=== PATIENT | male | born 1970 | race Caucasian/White ===

== ENCOUNTER 2024-04-20 12:32 | Emergency (ER) | payer MEDICARE, MEDICAID, SELFPAY ==
[2024-04-20] VITALS (16 sets, daily range): BP systolic 98–133; BP diastolic 65–91; PULSE 66–82; RESP 10–24; TEMP 36.9; O2SAT 92–96; BMI 25.1
--- OUTSIDE RECORDS SUMMARY | 2024-04-20 12:35 | XMS_ITS | Clinical Summary ---
[facility] Organization [facility] Address [address] [place] [address] Care Team Providers Care Technical Rep Name Role Phone Juan Diego Herrera MD Primary Care Provider [phone] Source Comments You are receiving this document as you are listed as the primary care provider,follow-up provider, or the patient has been referred to you for consultation.This is in compliance with the Medicare and[facility] EHR Incentive Program,which states Providers who transition their patient to another setting of careor provider of care or refers their patient to another provider of care shouldprovide summary care record for each transition of care or referral. [facility] Allergies No known active allergies Medications sildenafil (VIAGRA) 50 MG tablet Take 1/2 to 1 tab as needed. Take 30min to 4 hours before sexual activity. Max 100mg/24hr 6 Active asenapine (SAPHRIS) 10 MG SUBL tablet 6 Active QUEtiapine (SEROQUEL) 300 MG tablet 6 Active naltrexone (REVIA) 50 MG tablet 6 Active Blood Pressure Monitoring (ADULT BLOOD PRESSURE CUFF LG) As directed. Blood Pressure cuff, use to check blood pressure 3-7 times weekly. 6 Active metoPROLOL succinate (TOPROL XL) 25 MG 24 hour release tablet Take 25 mg by mouth. 6 Active hydrOXYzine HCl (ATARAX) 10 MG tablet Take 10 mg by mouth. 5 Active gabapentin (NEURONTIN) 300 MG capsule Take 600 mg by mouth. 6 Active fluoxetine (PROZAC) 40 MG capsule Take 40 mg by mouth. 5 Active cyclobenzaprine (FLEXERIL) 10 MG tablet TAKE 1 TABLET BY MOUTH UP TO 2 TIMES DAILY NEEDED FOR MUSCLE SPASMS. Use least amount possible. 6 Active busPIRone (BUSPAR) 30 MG tablet 6 Active buPROPion (WELLBUTRINSR) 150 MG 12 hour release tablet 6 Active atomoxetine (STRATTERA) 40 MG capsule Take 40 mg by mouth. 5 Active lisinopril (ZESTRIL) 2.5 MG tablet Take 10 mg by mouth daily. Active zolpidem tartrate (AMBIEN CR) 12.5 MG controlled release tablet Take 12.5 mg by mouth. 7 Active INCRUSE ELLIPTA 62.5 MCG/INH inhaler 2 8 Active umeclidinium (INCRUSE ELLIPTA) 62.5 MCG/INH inhaler Inhale 1 Puff. 7 Active tiotropium (SPIRIVA) 18 MCG inhalation capsule Inhale 18 mcg. Activ e OLANZapine (ZYPREXA) 2.5 MG tablet Take 20 mg by mouth. Active OLANZapine (ZYPREXA) 10 MG tablet Take 10 mg by mouth. 7 Active OLANZapine (ZYPREXA) 20 MG tablet Take 20 mg by mouth. 7 Active naproxen (NAPROSYN) 500 MG tablet Take by mouth. 7 Active ketoconazole (NIZORAL) 2 % cream APPLY TO AFFECTED AREA(S) ONCE DAILY 6 Active ipratropium-alb uterol (DUONEB) 0.5-2.5 MG/3ML nebulizer solution 6 8 Active fluticasone (FLOVENT HFA) 220 mcg/actuation inhaler Inhale. 7 Active doxepin (SINEQUAN) 10 MG capsule Take 10 mg by mouth. 8 Active Docusate Sodium (DSS) 100 MG Take 100 mg by mouth. Active BANOPHEN 25 MG capsule 3 8 Active clotrimazole (LOTRIMIN) 1 % cream Apply topically. 7 Active Misc. Devices (QUAD CANE) Single Point Cane for home use. For 6 months. Diagnosis frequent falls and chronic back pain. 7 Active Suvorexant (BELSOMRA) 20 MG TABS 8 Active baclofen (LIORESAL) 10 MG tablet Take 5 mg by mouth. Active atorvastatin (LIPITOR) 10 MG tablet Take 40 mg by mouth. Active atorvastatin (LIPITOR) 40 MG tablet Take 40 mg by mouth. 8 Active aspirin, enteric-coated 81 MG enteric coated tablet Take 81 mg by mouth. 7 Active amoxicillin (AMOXIL) 500 MG capsule 8 Active ALBUterol sulfate HFA 108 (90 BASE) MCG/ACT inhaler Inhale 2 Puffs. 7 Active acetaminophen (TYLENOL) 500 MG tablet Take 1,000 mg by mouth. 5 Active ibuprofen (MOTRIN) 600 MG tablet Take 1 Tab by mouth every 6 hours as needed for Pain. 30 Tab 8 Active HYDROcodone-jaye taminophen (NORCO) 5-325 MG tablet Take 1 Tab by mouth every 6 hours as needed for Pain. 15 Tab 8 Active chlorhexidine gluconate (PERIDEX) 0.12 % solution Swish and spit 15 mL in mouth two times a day. 473 mL 8 Active Active Problems Problem Noted Date Diagnosed Date Hyperlipidemia 01/31/2016 Moderate depressed bipolar I disorder 01/31/2016 Overview (01/31/2016): Overview: Problem list name updated by automated process. Provider to review Traumatic brain injury 01/31/2016 Overview (01/31/2016): Overview: Went Through [facility] at 14 year old. Early 2015: [facility]. 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 Hypertension 07/15/2015 Overview (01/31/2016): Overview: Mar 2014 metoprolol XL was started for tachycardia and blood pressure. Abnormal liver enzymes 02/03/2015 Overview (01/31/2016): Overview: Dec 2014: elevated AST, ALT< and Alkaline phosphatase when drinking 1.75L vodka/day. Borderline diabetes mellitus 01/01/2015 Overview (01/31/2016): Overview: Mar 2014: fasting blood sugar 158. Dec 2014: fasting blood sugar 112, screening A1c 6.3. Bifascicular block 12/09/2014 Overview (01/31/2016): Overview: November 2014: Echocardiogram essentially normal. Attention deficit hyperactiv ity disorder (ADHD), combined type 12/02/2014 Overview (01/31/2016): Overview: Per [facility] note 11/2014, started on Strattera. Alcohol dependence 07/30/2012 Overview (01/31/2016): Overview: Oct 2014: At [facility] outpatient chem treatment for history of meth, alcohol. Anxiety 07/30/2012 Cannabis dependence 07/30/2012 Depression 07/30/2012 Overview (01/31/2016): Overview: Evaluating for mood d/o Nov 2012: [facility]: increase prozac to 40mg. Injury of head 07/30/2012 Overview (01/31/2016): Overview: Age 1 and 14 Methamphetamine addiction 07/30/2012 Tobacco use 06/25/2012 Back pain 06/18/2012 Overview (01/31/2016): Overview: Oct 2012: Chronic, On gabapentin three times daily for pain. physical therapy ordered. Sep 2014: 3 visits of physical therapy for back. Oct 2014: changing Cyclobenzaprine (Flexaril) to tizanidine. 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 Gender Identity Not on file Sexual Orientation Not on file Last Filed Vital Signs Vital Sign Reading Time Taken Comments Blood Pressure 110/64 10/10/2017 10:03 AM CDT Pulse 96 10/10/2017 10:03 AM CDT Temperature 36.7 C (98 F) 07/16/2017 4:54 PM CDT Respiratory Rate 18 07/16/2017 4:54 PM CDT Oxygen Saturation 95% 07/16/2017 4:54 PM CDT Inhaled Oxygen Concentration - - Weight 113.4 kg (250 lb) 07/16/2017 11:29 AM CDT Height 175.3 cm (5' 9) 07/16/2017 11:29 AM CDT Body Mass Index 36.92 07/16/2017 11:29 AM CDT Plan of Treatment Health Maintenance Due Date Last Done Comments Colon Cancer Screening Plan Due 1968 Hep C Screening (Preventive Services) 1968 PSA Screening Discussion 1968 HIV Screening (Preventive Services) 1984 Adult Preventive Visit 1986 HepB (1) 09/27/1987 Cholesterol 09/27/2003 Zoster/Shingles (1 of 2) 2018 Pneumococcal 50+ Yrs (2 of 2 - PCV) 01/19/2021 01/20/2020 COVID-19 Vaccine (2 - 2023- season) 2023 05/11/2020 Influenza (#1) 2023 11/21/2018, 10/28, 10/23/2017, Additional history exists DTaP/Tdap/Td (2 - Tdap) 07/13/2027 07/12/2017 Pneumococcal Aged Out 01/20/2020 No longer eligi ble based on patient's age to complete this topic HepA Aged Out No longer eligi ble based on patient's age to complete this topic Hib Aged Out No longer eligi ble based on patient's age to complete this topic IPV (Polio) Aged Out No longer eligi ble based on patient's age to complete this topic MCV4 Aged Out No longer eligi ble based on patient's age to complete this topic Meningococcal B Aged Out No longer el igible based on patient's age to complete this topic Insurance [facility] Advance Directives * Full Code (Latest Code Status on File) Date Activated Date Inactivated Comments 07/16/2017 11:21 AM 07/16/2017 7:06 PM * Full Code Date Activated Date Inactivated Comments 01/31/2016 9:29 PM 02/01/2016 4:32 PM Care Teams Technical Rep Relationship Specialty Start Date End Date Juan Diego Herrera [place] [address] PCP - General Urgent Care 07/16/17
--- OUTSIDE RECORDS SUMMARY | 2024-04-20 12:35 | XMS_ITS | Clinical Summary ---
Author Organization [facility] Address [address] [place] [address] Care Team Providers Care Group Fitness Manager Name Role Phone Wesley Groves MD Primary Care Provider [phone] Allergies Active Allergy Reactions Criticality Noted Date Comments Lisinopril 07/31/2022 DIZZINESS No Known Drug Allergy 04/06/2004 Medications OLANZapine (ZYPREXA) 20 MG tablet Take 20 mg by mouth At Bedtime At 2200 Active FLUoxetine (PROZAC) 20 MG capsule Take 60 mg by mouth every morning At 0800 (3 x 20mg) Active aspirin 81 MG EC tablet Take 81 mg by mouth daily AT 1400 Active gabapentin (NEURONTIN) 300 MG capsule Take 600 mg by mouth 3 times daily At 0800, 1400, 2200 (2 x 300mg) Active busPIRone (BUSPAR) 10 MG tablet Take 15 mg by mouth 2 times daily At 0800 and 1400 Active baclofen (LIORESAL) 10 MG tablet Take 5 mg by mouth 3 times daily At 0800, 1400, 2200 (1/2 x 10mg) Active rosuvastatin (CRESTOR) 20 MG tablet Take 20 mg by mouth At Bedtime At 2200 Active Suvorexant (BELSOMRA) 20 MG tablet Take 20 mg by mouth At Bedtime Active metFORMIN (GLUCOPHAGE-XR) 500 MG 24 hr tablet Take 1,000 mg by mouth daily (with dinner) At 1400 Active QUEtiapine (SEROQUEL) 300 MG tablet Take 900 mg by mouth At Bedtime At 2200 (3 x 300mg) Active linagliptin (TRADJENTA) 5 MG TABS tablet Take 5 mg by mouth daily At 1400 Active glimepiride (AMARYL) 2 MG tablet Take 2 mg by mouth daily with food At 1400 Active buPROPion (WELLBUTRIN XL) 150 MG 24 hr tablet Take 150 mg by mouth every morning Active diphenhydrAMINE (BENADRYL) 25 MG capsule Take 25-50 mg by mouth At Bedtime Active naproxen (EC-NAPROSYN) 500 MG EC tablet Take 500 mg by mouth every 12 hours as needed Active ipratropium - albuterol 0.5 mg/2.5 mg/3 mL (DUONEB) 0.5-2.5 (3) MG/3ML neb solution Take 1 vial by nebulization every 6 hours as needed for shortness of breath / dyspnea or wheezing Active Fluticasone-Ume clidin-Vilanter ol (TRELEGY ELLIPTA) 100-62.5-25 MCG/INH oral inhaler Inhale 1 puff into the lungs daily Active docusate sodium (COLACE) 100 MG capsule Take 100 mg by mouth daily as needed for constipation Active celecoxib (CELEBREX) 200 MG capsule Take 400 mg by mouth 2 times daily 2 Active DULoxetine (CYMBALTA) 30 MG capsule Take 30 mg by mouth daily 2 Active famotidine (PEPCID) 20 MG tablet Take 20 mg by mouth daily 2 Active traMADol (ULTRAM) 50 MG tablet Take 50 mg by mouth as needed 2 Active metoprolol succinate ER (TOPROL XL) 50 MG 24 hr tablet Take 50 mg by mouth daily 2 Active acetaminophen (TYLENOL) 500 MG tablet Take 500-1,000 mg by mouth every 6 hours as needed for mild pain Active hydrOXYzine (ATARAX) 25 MG tablet Take 25-50 mg by mouth nightly as needed for other (SLEEP) Active nicotine (NICOTROL) 10 MG/ML SOLN inhalation solution [place] 1 spray in nostril every hour as needed for smoking cessation Active ondansetron (ZOFRAN ODT) 8 MG ODT tab Take 8 mg by mouth every 8 hours as needed for nausea Active albuterol (PROAIR HFA/PROVENTIL HFA/VENTOLIN HFA) 108 (90 Base) MCG/ACT inhaler Inhale 2 puffs into the lungs every 4 hours as needed for shortness of breath, wheezing or cough Active oxyCODONE (ROXICODONE) 5 MG tabletIndicatio ns:History of anal cancer Take 1 tablet (5 mg) by mouth every 6 hours as needed for moderate to severe pain 15 tablet 3 Active Active Problems Problem Noted Date Diagnosed Date Right leg weakness 03/20/2021 Acute respiratory failure with hypoxia 2 Elevated troponin I level 03/20/2021 COPD exacerbation 01/01/2019 Dyspnea 12/31/2018 Acute renal failure (ARF) 02/19/2017 COPD (chronic obstructive pulmonary disease) 11/2016 Tendinitis of right wrist 01/05/2011 HYPERLIPIDEMIA LDL GOAL <130 12/26/2009 Carpal tunnel syndrome 08/13/2004 Insomnia 07/05/2004 Overview (11/26/2014): Problem list name updated by automated process. Provider to review Anxiety state 07/05/2004 Overview (11/26/2014): Problem list name updated by automated process. Provider to review Tension headache 07/05/2004 Preop examination 04/26/2004 Overview (11/26/2014): Problem list name updated by automated process. Provider to review Other and unspecified disc disorder of cervical region 04/26/2004 Hyperlipidemia Overview (11/26/2014): Problem list name updated by automated process. Provider to review Moderate depressed bipolar I disorder Overview (11/27/2014): Problem list name updated by automated process. Provider to review Immunizations Name Administration Dates Next Due Influenza Vaccine >6 months,quad, PF ,11/23/2017,10/23/2017, 017 Family History Medical History Relation Comments Cancer - colorectal Maternal Uncle 2 of 4 uncle s Relation Status Comments Brother Alive 1 Father Alive Maternal Uncle Mother Alive Social History Tobacco Use Types Packs/Day Years Used Date Smoking Tobacco: Every Day Cigarettes 0.5 34 Smokeless Tobacco: Former Alcohol Use Standard Drinks/Week Comments No 0 (1 standard drink = 0.6 oz pur e alcohol) sober since 2005 Adolescent Education Answer Date Record ed Getting School Help Needed Not on file 12/12 Sex and Gender Information Value Date Recorded Sex Assigned at Not on file 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 Gender Identity Not on file Sexual Orientation Not on file Last Filed Vital Signs Vital Sign Reading Time Taken Comments Blood Pressure 132/94 02/22/2023 2:02 PM BLOCK PLACER Pulse 67 02/22/2023 12:08 PM BLOCK PLACER Temperature 36.3 C (97.3 F) 02/22/2023 11:26 AM BLOCK PLACER Respiratory Rate 18 02/22/2023 12:08 PM BLOCK PLACER Oxygen Saturation 95% 02/22/2023 2:02 PM BLOCK PLACER Inhaled Oxygen Concentration - - Weight 92.1 kg (203 lb) 08/01/2022 1:48 PM CDT Height 175.3 cm (5' 9) 08/01/2022 1:48 PM CDT Body Mass Index 29.98 08/01/2022 1:48 PM CDT Plan of Treatment Health Maintenance Due Date Last Done Comments ADVANCE CARE PLANNING 1968 ANNUAL REVIEW OF HM ORDERS 1968 COPD ACTION PLAN 1968 CT COLONOGRAPHY 1968 FIT 1968 FLEX SIG 1968 SPIROMETRY 1968 sDNA (Cologuard) 1968 HEPATITIS B IMMUNIZATION (1 of 3 - 19+ 3-dose series) 09/27/1987 LIPID 06/06/2006 06/06/2005 MEDICARE ANNUAL WELLNESS VISIT 07/28/2009 07/28/2008 ZOSTER IMMUNIZATION (1 of 2) 2018 LUNG CANCER SCREENING 03/20/2022 03/20/2021 COVID-19 Vaccine ( season) 2023 02/07/2022, 10/04/2021, 01/26/2021, Additional history exists INFLUENZA VACCINE (#1) 2023 , 01/24/2022, 01/14/2021, Additional history exists PHQ-2 (once per calendar year) 2024 GLUCOSE 08/16/2024 08/16/2021, 07/28, 03/23/2021, Additional history exists DTAP/TDAP/TD IMMUNIZATION (2 - Td or Tdap) 07/13/2027 07/12/2017 COLONOSCOPY 04/21/2029 04/21/2019, 09/28/2008 COLORECTAL CANCER SCREENING 04/21/2029 HEPATITIS C SCREENING Completed 03/11/2020, 006 HIV SCREENING Completed 03/11/2020, 06/06/2005 Pneumococcal Vaccine: 50+ Years Completed 03/20/2023, 01/20/2020 HPV IMMUNIZATION Aged Out No longer e ligible based on patient's age to complete this topic MENINGITIS IMMUNIZATION Aged Out No l onger eligible based on patient's age to complete this topic Procedures Procedure Name Priority Date/Time Associated Diagnosis Comments GLUCOSE BY METER Routine 08/16/2021 1:[address] CHEST PULMONARY EMBOLISM W CONTRAST STAT 03/20/2021 10:22 AM BLOCK PLACER ZZHC COLONOSCOPY THRU STOMA, DIAGNOSTIC Routine 09/28/2008 HCL HIV 1 & 2 ANTIBODY Routine 06/06/2005 11:23 AM CDT Schizophrenia Nec-Unspec Bipolar - Most Recently Manic Nos HCL HEPATITIS C VIRUS ANTIBODY Routine 06/06/2005 11:23 AM CDT Schizophrenia Nec-Unspec Bipolar - Most Recently Manic Nos CL AFF A.M.A. LIPID PANEL Routine 06/06/2005 11:23 AM CDT Schizophrenia Nec-Unspec Bipolar - Most Recently Manic Nos from Last 3 Months or Most Recently Relevant to Health Maintenance Results * (ABNORMAL) Glucose by meter (08/16/2021 1:08 PM CDT) GLUCOSE BY METER POCT 143(H) 70 - 99 mg/dL 08/16/2021 1:15 PM CDT [facility] LAB[facility]AT[facility] POC Blood, Capillary BLOOD SPECIMEN / Unknown 08/16/2021 1:08 PM CDT 08/16/2021 1:15 PM CDT us Leigh Lynne MD LAB - BEAKER POCT Final Re sult [facility]ORAT[facility] POC [facility] [address] [facility] (1st floor, no room number) [place] [address], [facility] [phone] * CT Chest Pulmonary Embolism w Contrast (03/20/2021 10:22 AM BLOCK PLACER) Anatomical Region Laterality Modality Chest, SUBRAD CT BODY, UMP CT CHEST Computed Tomography 03/20/2021 10:1 0 AM BLOCK PLACER Impressions 03/20/2021 10:50 AM BLOCK PLACER IMPRESSION: 1. No pulmonary embolism demonstrated. 2. Minimal peripheral atelectasis and/or fibrosis. 3. Minimally prominent right hilar lymph node of uncertain etiology and significance, stable since comparison. Narrative 03/20/2021 10:50 AM BLOCK PLACER EXAM: CT CHEST PULMONARY EMBOLISM WITH CONTRAST LOCATION: [facility] DATE/TIME: 03/20/2021, 10:10 AM INDICATION: Hypoxia. PE suspected, low/intermediate probability, positive D- dimer. COMPARISON: 08/26/2020. TECHNIQUE: CT chest pulmonary angiogram during arterial phase injection of IV contrast. Multiplanar reformats and MIP reconstructions were performed. Dose reduction techniques were used. CONTRAST: 71 mL Isovue-370. FINDINGS: ANGIOGRAM CHEST: Pulmonary arteries are normal caliber and negative for pulmonary emboli. Thoracic aorta is negative for dissection. No CT evidence of right heart strain. LUNGS AND PLEURA: Minimal peripheral atelectasis and/or fibrosis. No effusions. MEDIASTINUM/AXILLAE: Minimally prominent right hilar lymph node, of uncertain etiology or significance. No aneurysm. CORONARY ARTERY CALCIFICATION: None. UPPER ABDOMEN: No acute findings. MUSCULOSKELETAL: No frankly destructive bony lesions. Procedure Note Azam Zamudio MD - 03/20/2021 EXAM: CT CHEST PULMONARY EMBOLISM WITH CONTRAST LOCATION: [facility] DATE/TIME: 03/20/2021, 10:10 AM INDICATION: Hypoxia. PE suspected, low/intermediate probability, positiveD- dimer. COMPARISON: 08/26/2020. TECHNIQUE: CT chest pulmonary angiogram during arterial phase injection ofIV contrast. Multiplanar reformats and MIP reconstructions were performed.Dose reduction techniques were used. CONTRAST: 71 mL Isovue-370. FINDINGS: ANGIOGRAM CHEST: Pulmonary arteries are normal caliber and negative forpulmonary emboli. Thoracic aorta is negative for dissection. No CTevidence of right heart strain. LUNGS AND PLEURA: Minimal peripheral atelectasis and/or fibrosis. Noeffusions. MEDIASTINUM/AXILLAE: Minimally prominent right hilar lymph node, ofuncertain etiology or significance. No aneurysm. CORONARY ARTERY CALCIFICATION: None. UPPER ABDOMEN: No acute findings. MUSCULOSKELETAL: No frankly destructive bony lesions. IMPRESSION: 1. No pulmonary embolism demonstrated. 2. Minimal peripheral atelectasis and/or fibrosis. 3. Minimally prominent right hilar lymph node of uncertain etiology andsignificance, stable since comparison. Ethan Ferrer MD IMG CT ORDERABLES Final Resu lt * COLONOSCOPY (09/28/2008) Marco Land MD PROCEDURES Final Result * HEPATITIS C AB (06/06/2005 11:23 AM CDT) Hepatitis C Antibody Negative NEG [facility] 06/06/2005 11:2 3 AM CDT 06/06/2005 11:25 AM CDT Jose Sheehan MD LABORATORY Final Resu lt [facility] [address] [place] [address] * HIV-1/HIV-2, SCREEN (06/06/2005 11:23 AM CDT) HIV 1&2 Antibody Negative NEG [facility] 06/06/2005 11:2 3 AM CDT 06/06/2005 11:25 AM CDT Jose Sheehan MD LABORATORY Final Resu lt [facility] [address] [place] [address] * (ABNORMAL) A.M.A. LIPID PANEL (06/06/2005 11:23 AM CDT) Cholesterol 216(H) 0 - 200 mg/dL [facility] Comment: LDL Cholesterol is the primary guide to therapy: LDL-cholesterol goal in high risk patients is <100 mg/dL and in very high risk patients is <70 mg/dL. The NCEP recommends further evaluation of: patients with cholesterol <200 mg/dL if additional risk factors are present, cholesterol >240 mg/dL, triglycerides >150 mg/dL, or HDL <40 mg/dL. Triglycerides 149 0 - 150 mg/dL [facility] HDL Cholesterol 53 40 - 110 mg/dL [facility] LDL Cholesterol Calculated 133(H) 0 - 129 mg/dL [facility] Comment: LDL Cholesterol is the primary guide to therapy: LDL-cholesterol goal in high risk patients is <100 mg/dL and in very high risk patients is <70 mg/dL. VLDL-Cholesterol 30 0 - 30 mg/dL [facility] Cholesterol/HDL Ratio 4.1 0.0 - 5.0 [facility] 06/06/2005 11:2 3 AM CDT 06/06/2005 11:25 AM CDT Jose Sheehan MD LABORATORY Final Resu lt [facility] [address] [place] [address] from Last 3 Months or Most Recently Relevant to Health Maintenance Insurance [employer] MEDICARE [facility] MEDICARE Advance Directives For more information, please contact: [phone] * Full Code (Latest Code Status on File) Date Activated Date Inactivated Comments 03/20/2021 1:18 PM 03/23/2021 4:11 PM All basic an d advanced life-sustaining interventions are performed as appropriate Question Answer Comments Code status determined by: Discussion with sale nt/ legal decision maker * Full Code Date Activated Date Inactivated Comments 12/31/2018 10:50 AM 01/01/2019 3:13 PM Question Answer Comments Code status determined by: Discussion with sale nt/legal decision maker * Full Code Date Activated Date Inactivated Comments 02/21/2017 1:26 PM 12/31/2018 7:18 AM * Full Code Date Activated Date Inactivated Comments 02/19/2017 2:33 PM 02/21/2017 1:26 PM * Full Code Date Activated Date Inactivated Comments 01/07/2017 1:58 PM 02/19/2017 2:33 PM Care Teams Group Fitness Manager Relationship Specialty [place] [address] [place] [address] PCP - General 02/22/23
--- OUTSIDE RECORDS SUMMARY | 2024-04-20 12:35 | XMS_ITS | Encounter Summary ---
Author Organization [facility] Address [address] [place] [address] Care Team Providers Care Military Logistics Specialist Name Role Phone Juan Diego Herrera MD Primary Care Provider [phone] Encounter Details Date Type Department Care Team (Late st Contact Info) Description 07/16/2017 Consent for Procedure/Treatme nt [facility] INFORMED CONSENT RECORD Social History Tobacco Use Types Packs/Day Years Used Date Smoking Tobacco: Every Day Cigarettes Smokeless Tobacco: Never Alcohol Use Standard Drinks/Week Comments No 0 (1 standard drink = 0.6 oz pur e alcohol) Sex and Gender Information Value Date Recorded Sex Assigned at Not on file 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
--- OUTSIDE RECORDS SUMMARY | 2024-04-20 12:35 | XMS_ITS | Clinical Summary ---
Author Organization [facility] Address [address] [place] [id number] Care Team Providers Care Storage Facility Housekeeper Name Role Phone Ruddy Astudillojero TORRES Unavailable [phone] Zack Marin MBRICHARD Unavailable + Ani Handley DPM Unavailable [phone] Leigh Lynne MD Unavailable [phone] Nader Sun Unavailable Yung Roque MD Unavailable [phone] Wesley Groves MD Primary Care Provider [phone] America Ambrocio MD Unavailable [phone] Allergies Active Allergy Reactions Criticality Noted Date Comments Lisinopril Dizziness 02/07/2018 DIZZINESS Medications acetaminophen (TYLENOL EXTRA STRGTH) 500 mg tabletIndications: Chronic low back pain Take 2 tablets by mouth every 6 hours if needed for Pain. Max acetaminophen dose: 4000mg in 24 hrs. 180 tablet 0 06/26/19 15 Active miscellaneous medical supply (BLOOD PRESSURE CUFF) miscIndications:El evated blood pressure As directed. Blood Pressure cuff, use to check blood pressure 3-7 times weekly. 1 Units 0 06/21/19 16 Active FLUoxetine (PROZAC) 20 mg capsule TAKE 3 CAPSULES (60MG) BY MOUTH DAILY 3 02/23/20 16 Active ketoconazole 2% topical (NIZORAL) cream APPLY TO AFFECTED AREA(S) ONCE DAILY 0 01/28/20 16 Active CPAPIndications:OS A (obstructive sleep apnea) new CPAP machine for home use at pressure: 9 cms, Heated humidifier x 1, Humidifier chamber x 1, nasal mask with cushion x 1, Heated tubing x 1, Headgear x 1, Filters: Disposable x 1pk & Reusable x 1pk, Length of Need: 99 months, Frequency of use: Daily 12 04/24/19 17 Active NebulizerIndicatio ns:COPD with chronic bronchitis (HC) Disposable neb kit x4, reuseable neb kit x1, 1 mask, 1 filter. Frequency of use: daily prn; Medication: Duo neb. Length of need: 99 months 1 Device 01/18/20 17 Active vitamins a & d (Skin Protectant A and D) ointmentIndication s:Skin abnormality Apply topically to affected area(s) once daily if needed. 56 g 1 08/17/19 21 Active docusate (COLACE) 100 mg capsule Take 1 Capsule (100 mg) by mouth 2 times daily if needed for Constipation. 0 09/03/19 21 Active nicotine (NICOTROL) 10 mg inhalerIndications :Tobacco use disorder Inhale 10 mg by mouth every hour while awake as needed for Nicotine Craving. 168 Each 2 10/06/19 22 Active tamsulosin (FLOMAX) 0.4 mg capsule Take 0.4 mg by mouth once daily after a meal. Active Blood-Glucose Meter (Accu-Chek Guide Glucose Meter)Indications: Type 2 diabetes mellitus without complication, without long-term current use of insulin (HC) Dispense glucose meter, test strips and lancets covered by the patient insurance. Test 1 times per day. 1 Each 01/27/20 23 Active albuterol-ipratrop ium (DUONEB) (2.5-0.5 mg) in 3 mL NEBULIZATION solution Inhale 3 mL via a nebulizer every 6 hours if needed for Wheezing or Shortness of Breath 2nd choice. 03/19/19 24 Active cyclobenzaprine (FLEXERIL) 10 mg tablet Take 1 Tablet (10 mg) by mouth 2 times daily if needed for Muscle Spasm. 03/19/19 24 Active hydrOXYzine HCL (ATARAX) 25 mg tabletIndications: Anxiety Take 1 Tablet (25 mg) by mouth every 6 hours if needed for Anxiety. 25 Tablet 5 03/20/19 24 Active lancets (Accu-Chek Softclix Lancets)Indication s:Type 2 diabetes mellitus without complication, without long-term current use of insulin (HC) TEST 1 TIME DAILY 100 Each 3 04/12/19 24 Active QUEtiapine (SEROQUEL) 100 mg tablet 1 tablet in the am and 2 tablets at bedtime 05/16/19 24 Active hydrOXYzine HCL (ATARAX) 25 mg tablet Take 1-2 Capsules at bedtime as needed for sleep 05/22/19 24 Active metFORMIN (GLUCOPHAGE XR) 500 mg Extended-Release tabletIndications: Type 2 diabetes mellitus without complication, without long-term current use of insulin (HC) Take 2 Tablets (1,000 mg) by mouth once daily with evening meal. For diabetes. 180 Tablet 3 06/11/19 24 Active OLANzapine (ZYPREXA) 20 mg tablet Take 20 mg by mouth at bedtime. 05/30/19 24 Active OLANzapine (ZyPREXA) 10 mg tabletIndications: Chronic midline low back pain without sciatica Take half tablet (5mg) am and noon. 06/13/19 24 Active blood sugar diagnostic (Accu-Chek Guide test strips) stripIndications:T ype 2 diabetes mellitus without complication, without long-term current use of insulin (HC) TEST 1 TIME DAILY 100 Each 3 07/21/19 24 Active buPROPion (WELLBUTRIN XL) 150 mg Extended-Release tablet Take 150 mg by mouth once daily. 08/15/19 24 Active ibuprofen (ADVIL; MOTRIN) 600 mg tablet Take 1 Tablet (600 mg) by mouth every 8 hours if needed for Pain. Maximum of 3200 mg in 24 hours. 09/17/19 24 Active naproxen (NAPROSYN) 500 mg tablet Take 1 Tablet (500 mg) by mouth two times daily. 09/17/19 24 Active fluticasone ijd-mkpolinngsri-k ilanterol (Trelegy Ellipta) 100-62.5-25 mcg inhalerIndications :COPD with chronic bronchitis (HC) Inhale 1 Puff by mouth once daily. 60 Each 11 10/16/19 24 Active imiquimod (ALDARA) 5 % creamIndications:S kin lesion Apply 1 packet topically in the evening on . 24 Packet 2 12/10/19 24 Active albuterol HFA (Ventolin HFA) 90 mcg/actuation inhalerIndications :COPD with chronic bronchitis (HC) Inhale 2 Puffs by mouth every 4 hours if needed for Shortness Of Breath. 36 g 5 12/19/19 24 Active glimepiride (AMARYL) 2 mg tabletIndications: Type 2 diabetes mellitus without complication, without long-term current use of insulin (HC) Take 1 Tablet (2 mg) by mouth once daily with a meal. For diabetes. 12/19/19 24 Active acetaminophen-code ine (TYLENOL #3) 300-30 mg per tabletIndications: Acute right-sided low back pain without sciatica Take 1 Tablet by mouth every 4 hours if needed for Pain. Max acetaminophen dose: 4000mg in 24 hrs. 20 Tablet 01/01/20 24 Active rosuvastatin (CRESTOR) 20 mg tabletIndications: Hypercholesterolem ia TAKE 1 TAB BY MOUTH AT BEDTIME FOR CHOLESTEROL 90 Tablet 3 01/06/20 24 Active busPIRone (BUSPAR) 15 mg tablet Take 1.5 Tablets (22.5 mg) by mouth three times daily. 01/14/20 24 Active DULoxetine (CYMBALTA) 30 mg Delayed-release capsuleIndications :Major depressive disorder, single episode, severe without psychotic features (HC),Anxiety,Depre ssion, unspecified depression type TAKE 1 CAPSULE BY MOUTH EVERY DAY 90 Capsule 3 01/29/20 24 Active famotidine (PEPCID) 20 mg tabletIndications: Pain in right leg TAKE 1 TABLET BY MOUTH TWICE A DAY 180 Tablet 2 02/16/20 24 Active aspirin (ECOTRIN) 81 mg enteric coated tabletIndications: Chest pain, unspecified type Take 1 Tablet (81 mg) by mouth once daily with a meal. 90 Tablet 3 02/14/20 24 Active metoprolol succinate (TOPROL XL) 50 mg sustained-release tabletIndications: Anxiety Take 0.5 Tablets (25 mg) by mouth once daily. 02/21/20 24 Active linaGLIPtin (Tradjenta) 5 mg tabIndications:Typ e 2 diabetes mellitus without complication, without long-term current use of insulin (HC) Take 1 Tablet (5 mg) by mouth once daily. 30 Tablet 5 02/22/20 24 Active baclofen 10 mg tabletIndications: Chronic midline low back pain without sciatica,Chronic bilateral low back pain without sciatica,Degenerat ion of intervertebral disc of lumbar region with discogenic back pain and lower extremity pain TAKE 1/2 TABLET BY MOUTH UP TO MAX OF 3 TIMES DAILY 135 Tablet 5 02/27/19 25 Active gabapentin (NEURONTIN) 300 mg capsuleIndications :Chronic midline low back pain without sciatica,Chronic bilateral low back pain without sciatica,Degenerat ion of intervertebral disc of lumbar region with discogenic back pain and lower extremity pain Take 3 Capsules (900 mg) by mouth three times daily. 270 Capsule 3 02/27/19 25 Active polyethylene glycol-electrolyte (GOLYTELY) 236-22.74-6.74 -5.86 gram suspensionIndicati ons:Encounter for screening colonoscopy Drink 2 liters the day before the procedure and 2 liters 6 hours prior to procedure. 4000 mL 06/14/19 25 Active Active Problems Problem Noted Date Diagnosed Date Bipolar disorder, current ep isode depressed, mild or moderate severity, unspecified 03/20/2023 Chronic obstructive pulmonar y disease, unspecified COPD type 03/20/2023 Impairment of balance 02/09/2023 Major depressive disorder, s arabella episode, severe without psychotic features 04/06/2021 Neuropathy of right peroneal nerve 04/01/2021 Overview (04/01/2021): Mar 2021: Anal cancer 09/02/2020 Overview (09/02/2020): Diagnosis August 2020, Surgery planned. Choroidal nevus, right eye 06/07/2020 Adenomatous colon polyp 04/22/2019 Overview (04/22/2019): Colonoscopy 03/2019 polyp, repeat in 5 years Abnormal cardiovascular stress test 02/06/2018 Type 2 diabetes mellitus wit hout complication, without long-term current use of insulin 07/03/2017 Overview (07/11/2019): Diagnosis made June 2017: Hemoglobin A1c 7.8 and Fasting 158. Started metformin. May 2019: GI symptoms/weight loss/ decreased appetite improved with stopping metformin. Changed metformin to invokana. May 2019: adding Glimepiride due to high blood sugars. June 2019: Blood sugars high, so adding back Metformin XR. 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 COPD with chronic bronchitis 04/05/2016 Overview (04/01/2021): New diagnosis 2015. On spiriva, adding flovent Mar 2016. Dec 2016: admitted with CAP and respiratory failure. Added duoneb prn. Spiriva Changed to Incruse Ellipta due to insurance reasons only. July 2018: Changing back to Spiriva due to insurance. January 2019: STopping spiriva and duoneb, Starting Albuterol nebulizer and Breo Ellipta with referral to pulmonary. Severely abnormal Spirometry. Mar 2021: Hospitalization for COPD exacerbation and Acute hypoxic respiratory failure, Erectile dysfunction 08/26/2015 Overview (08/28/2015): New diagnosis July 2015: Cialis started. Primary hypertension 07/15/2015 Overview (01/24/2018): Mar 2014 metoprolol XL was started for tachycardia and blood pressure. May 2016: Cardiology increased to 50mg. December 2017: decreased lisinopril to 5mg due to light headed and Orthostatic hypotension symptoms. December 2017: Continued low blood pressure with fall suspected to be related to hypotension. Stopping lisinopril. Elevated liver enzymes 02/03/2015 Overview (01/22/2020): Dec 2014: elevated AST, ALT< and Alkaline phosphatase when drinking 1.75L vodka/day. Dec 2019: Alkaline phosphatase 198, GGT 104. Gastrointestinal consult ordered. Bifascicular block 12/09/2014 Overview (12/09/2014): November 2014: Echocardiogram essentially normal. Attention deficit hyperactiv ity disorder (ADHD), combined type 12/02/2014 Overview (12/02/2014): Per [facility] note 11/2014, started on Strattera. Long-term use of high-risk medication 06/05/2014 Depression 07/30/2012 Overview (06/17/2019): Evaluating for mood d/o Nov 2012: [facility]: increase prozac to 40mg. January 2019: Marium Astudillo stopped buspirone. Head injuries 07/30/2012 Overview (07/30/2012): Age 1 and 14 Anxiety 07/30/2012 Tobacco use disorder 06/25/2012 Overview (10/05/2021): Sep 2021: trying Nicoderm patch to help quit. Not covered, so changed to Nicotine inhaler. Back pain 06/18/2012 Overview (09/13/2016): Oct 2012: Chronic, On gabapentin three times daily for pain. physical therapy ordered. Sep 2014: 3 visits of physical therapy for back. Oct 2014: changing Cyclobenzaprine (Flexaril) to tizanidine. MRI Lumbar Spine August 2016: shows minor disc bulging without stenosis. Doing physical therapy Summer 2016. PHARYNGITIS, ACUTE 09/22/1999 TBI (traumatic brain injury) Overview (06/25/2014): Went Through [facility] at 14 year old. Early 2014: [facility]. JODIE (obstructive sleep apnea) Overview (04/19/2016): Mar 2016: Sleep study at [facility], AHI 72 Resolved Problems Problem Noted Date Diagnosed Date Resolved Date Alcohol withdrawal seizure w ithout complication 04/05/2016 10/19/2020 Overview (04/05/2016): January 2016. Methamphetamine dependence 07/30/2012 0 04/06/2021 Cannabis dependence 07/30/2012 07/18/19 Alcohol dependence 07/30/2012 3 Overview (11/20/2014): Oct 2014: At [facility] outpatient chem treatment for history of meth, alcohol. Alcoholism in remission 07/09/201205/2012 Marihuana abuse 07/09/2012 07/30/2012 Bipolar disorder (manic depression) 06/18/2012 07/30/2012 Encounters Date Type Department Care Team Description 04/20/2024 11:20 AM SQL SERVER CONSULTANT Office Visit [facility] [address] [place] [phone] Leigh France PA Dizzy; Falls 04/20/2024 Travel 03/24/2024 [facility]phone [facility] [address] [place] [address] Hitesh Ryder MD Screening 03/20/2024 Orders Only [facility] [address] [place] [address] Hitesh Ryder MD <No scans attached> 03/07/2024 Telephone [facility] [address] [place] [address] Wesley Groves MD Form (HHC & POC) 03/03/2024 Telephone [facility] [address] [place] [address] Nader Sun PA Prior Authorization (XR INJ EPIDURAL INTERLAMINAR LUMBAR- PA DENIED- APPEAL NEEDED/) 02/29/2024 3:15 PM SQL SERVER CONSULTANT Orders Only [facility] [address] [place] [address] Lab, [facility] 02/28/2024 8:45 AM SQL SERVER CONSULTANT Procedure Only [facility] [address] [place] [address] America Ambrocio MD Procedure (lumbar interlaminar with no sed... 02/28/2024 8:10 AM SQL SERVER CONSULTANT - 02/28/2024 11:59 PM SQL SERVER CONSULTANT Hospital Encounter [facility] [address] [place] [address] America Ambrocio MD 02/28/2024 Travel 02/22/2024 8:45 AM SQL SERVER CONSULTANT Office Visit [facility] [address] [place] [address] Wesley Groves MD Preoperative Exam (DOS 02/28/24 steroid injection at the pain clinic) 02/22/2024 Travel 02/21/2024 Telephone [facility] [address] [place] [address] Wesley Groves MD Form (Physician's order) 02/18/2024 Telephone [facility] [address] [place] [address] America Ambrocio MD Prior Authorization (XR INJ EPIDURAL INTERLAMINAR LUMBAR (fyi only)/ ) 02/18/2024 Telephone [facility] [address] [facility] [address] [place] [address] Nader Sun PA Prior Authorization (XR INJ EPIDURAL INTERLAMINAR LUMBAR (ADD'L INFO REQUESTED)) 02/15/2024 Orders Only [facility] [address] [place] [address] Wesley Groves MD <No scans attached> 02/15/2024 Nurse Triage [facility] [address] [place] [address] Wesley Groves MD Low Blood Pressure 02/13/2024 Refill [facility] [address] [place] [address] Wesley Groves MD Refill Request (Famotidine) 02/11/2024 Refill [facility] [address] [place] [address] Wesley Groves MD Refill Request (Aspirin) 02/08/2024 10:30 AM SQL SERVER CONSULTANT Office Visit [facility] [address] [place] [address] Nader Sun PA Follow Up 02/08/2024 Travel 02/02/2024 Refill [facility] [address] [place] [address] Wesley Groves MD Refill Request (Metoprolol Succinate) 01/27/2024 Refill [facility] [address] [place] [address] Wesley Groves MD Refill Request (Duloxetine) from Last 3 Months Immunizations Name Administration Dates Next Due COVID-19 vaccine (Moderna 100mcg/0.5mL) PF, MDV 01/26/2021,06/08/2020,05/11/2020 COVID-19 vaccine (Moderna 50mcg/0.5mL) 12YO+ BIVALENT PF, MDV 02/07/2022 COVID-19 vaccine (Moderna Bora sofia 50mcg/0.25mL) PF, MDV 10/04/2021 INFLUENZA, IIV3 PF (AGE >= 6 MO) 12/19/2023 Influenza, IIV4 02/09/2023,,01/14/2021,2018,11/23/2017,10/23/2017,01/17/2017,0 04/05/2016 Pneumococcal Conj 20-valent (Prevnar 20) 03/20/2023 Pneumococcal Poly,23-Valent (Pneumovax) 01/20/2020 Tdap 07/12/2017 Tuberculin (PPD) 01/04/2015 Zoster (Shingrix-RZV, recombinant) 10/26/2023 Family History Medical History Relation Name Comments Alcohol/Drug Brother Other Father bad back proble ms, no surgery, would step on his back to help Alcohol/Drug Maternal Grandfather Cancer Maternal Grandfather Brain c ancer Cancer-colon Maternal Uncle 1 3 uncles w colon cancer. Alcohol/Drug Maternal Uncle 2 Alcohol/Drug Maternal Uncle 3 Alcohol/Drug Maternal Uncle 4 Alcohol/Drug Maternal Uncle 5 Psychiatric illness Maternal Uncle 6 Schi zophrenia Cancer Son Leukemia Relation Name Status Comments Brother Father Maternal Grandfather Maternal Uncle 1 Maternal Uncle 2 Maternal Uncle 3 Maternal Uncle 4 Maternal Uncle 5 Maternal Uncle 6 Son Social History Tobacco Use Types Packs/Day Years Used Date Smoking Tobacco: Every Day Cigarettes 0.5 41.1 Started: 1983 Smokeless Tobacco: Never Tobacco Cessation:Ready to Q uit: No; Counseling Given: No Comments:2/day Alcohol Use Standard Drinks/Week Comments No 0 (1 standard drink = 0.6 oz pur e alcohol) 3 DUIs in [place] PHQ-2 Answer Date Recorded PHQ-2 TOTAL SCORE 4 08/28/2022 Social Connections Answer Date Recorded Do you often feel lonely or isolated from those around you? 0 12/15/2023 Financial Resource Strain Answer Date R ecorded Difficulty of Paying Living Expenses 3 12/15/2023 Difficulty of Paying Living Expenses Not on file 12/15/2023 Food Insecurity Answer Date Recorded Do you worry your food will run out before you are able to buy more? 1 12/15/2023 Transportation Needs Answer Date Record ed Does lack of transportation keep you from medica l appointments? 1 12/15/2023 Does lack of transportation keep you from work, meetings or getting things that you need? 1 12/15/2023 Housing Stability Answer Date Recorded What is your housing situation today? 1 12/15/2023 Utilities Answer Date Recorded Do you have trouble paying f or utilities (for example, heat, electricity, water, phone)? 1 12/15/2023 Sex and Gender Information Value Date Recorded Sex Assigned at Not on file Legal Sex Male 6:19 AM SQL SERVER CONSULTANT Gender Identity Not on file Sexual Orientation Not on file Occupation Industry Job Start Date Job End Date Unemployed Not on file Not on file Not on file Obstetrics History Last Filed Vital Signs Vital Sign Reading Time Taken Comments Blood Pressure 101/59 04/20/2024 11:31 AM SQL SERVER CONSULTANT Pulse 88 04/20/2024 11:31 AM SQL SERVER CONSULTANT Temperature 36.3 C (97.3 F) 04/20/2024 11:31 AM SQL SERVER CONSULTANT Respiratory Rate 16 04/20/2024 11:31 AM SQL SERVER CONSULTANT Oxygen Saturation 95% 04/20/2024 11:31 AM SQL SERVER CONSULTANT Inhaled Oxygen Concentration - - Weight 79.4 kg (175 lb) 04/20/2024 11:31 AM SQL SERVER CONSULTANT Height 175.3 cm (5' 9) 04/20/2024 11:31 AM SQL SERVER CONSULTANT Body Mass Index 25.84 04/20/2024 11:31 AM SQL SERVER CONSULTANT Plan of Treatment Upcoming Encounters Date Type Department Care Team (Late st Contact Info) Description 06/10/2024 9:10 AM CDT Office Visit [facility] [address] [place] [address] [place] [address] [place] [address] 06/27/2024 9:15 AM CDT [facility] [address] [place] [phone] Hitesh Ryder MD [address] [place] [address] 09/04/2024 Hospital Encounter [facility] [address] [place] [address] 10/01/2024 10:30 AM CDT Office Visit [facility] [address] [facility] [address] [place] [address] Nader Sun PA [address] [facility] [address] [place] [address] Health Maintenance Due Date Last Done Comments Hepatitis B series for Diabe kirsten (1 of 3 - 19+ 3-dose series) 09/27/1987 Depression screening for age 12+ 08/31/2023 08/30/2022, 08/30/2022, 08/29/2022, Additional history exists COVID-19 vaccine series ( season) 2023 02/07/2022, 10/04/2021, 01/26/2021, Additional history exists Zoster (shingles) series for age 50+ (2 of 2) 12/21/2023 10/26/[address] (for lung CA) ag e 50-80 12/24/2024 12/25/2023 BMI (ht and wt on same day) for age 18+ 04/20/2025 04/20/2024, 02/22/2024, 10/16/2023, Additional history exists Tetanus booster 07/13/2027 07/12/2017 Lipids for age 45-75 12/18/2028 12/19/2023, 11/01/2022, 02/07/2022, Additional history exists Colonoscopy through age 75 04/21/202904/21, 04/21/2019, 04/21/2019 Tdap Completed 07/12/2017 HIV for age 15-65 Completed 03/11/2020 Hepatitis C screening for ag e 18-79 Completed 03/11/2020 Pneumococcal series for age 50+ Completed , 01/20/2020 Influenza for age 50-64 Completed 12/19/19, 02/09/2023, 01/24/2022, Additional history exists Goals Goal Patient Goal Type Associated Problems Recent Progress Patient-Stated? Author BLOOD PRESSURE - MAINTAINS BP less than 140/90 Blood Pressure Juan J Juarez MD Procedures Procedure Name Priority Date/Time Associated Diagnosis Comments [facility] IMAGE STORAGE Routine 02/28/2024 6:48 AM SQL SERVER CONSULTANT CT CHEST SCREENING LOW DOSE WO CONTRAST Routine 12/25/2023 8:02 AM CDT COPD with chronic bronchitis (HC) History of cigarette smoking LIPID PANEL W REFLEX MEASURED LDL Routine 12/19/2023 9:37 AM CDT Lipid screening ANTI HIV 1/2 Routine 03/11/2020 2:01 PM SQL SERVER CONSULTANT Elevated alkaline phosphatase level Elevated liver enzymes ANTI HCV Routine 03/11/2020 2:01 PM SQL SERVER CONSULTANT Elevated alkaline phosphatase level Elevated liver enzymes COLONOSCOPY DIAGNOSTIC Routine 04/21/2019 12:00 PM SQL SERVER CONSULTANT Positive colorectal cancer screening using Cologuard test from Last 3 Months or Most Recently Relevant to Health Maintenance Results * CT CHEST SCREENING LOW DOSE WO CONTRAST (12/25/2023 8:02 AM CDT) Anatomical Region Laterality Modality Computed Tomogra phy 12/25/2023 8:02 AM CDT Impressions 12/25/2023 12:36 PM CDT 1. Negative for lung cancer screening purposes. LungRADS CATEGORY: 1 - Negative RADIOLOGIST RECOMMENDATION: Continue annual screening with low-dose CT chest in 12 months. Narrative 12/25/2023 12:36 PM CDT For Patients: As a result of the Cures Act, medical imaging exams and procedure reports are released immediately into your electronic medical record. You may view this report before your referring provider. If you have questions, please contact your health care provider. EXAM: LOW DOSE LUNG CANCER SCREENING CT CHEST LOCATION: [facility] DATE: 12/25/2023 INDICATION: Lung cancer screening. History of smoking. High risk patient. COMPARISON: None. TECHNIQUE: Low-dose lung cancer screening non-contrast CT chest. Dose reduction techniques were used. FINDINGS: NODULES: None. LUNGS AND PLEURA: Normal. MEDIASTINUM: Normal. CORONARY ARTERY CALCIFICATION: None. LIMITED UPPER ABDOMEN: Normal. MUSCULOSKELETAL: Normal. Procedure Note Chilo Osorio MD - 12/25/2023 For Patients: As a result of the Cures Act, medical imagingexams and procedure reports are released immediately into your electronicmedical record. You may view this report before your referring provider.If you have questions, please contact your health care provider. EXAM: LOW DOSE LUNG CANCER SCREENING CT CHEST LOCATION: [facility] DATE: 12/25/2023 INDICATION: Lung cancer screening. History of smoking. High riskpatient. COMPARISON: None. TECHNIQUE: Low-dose lung cancer screening non-contrast CT chest. Dosereduction techniques were used. FINDINGS: NODULES: None. LUNGS AND PLEURA: Normal. MEDIASTINUM: Normal. CORONARY ARTERY CALCIFICATION: None. LIMITED UPPER ABDOMEN: Normal. MUSCULOSKELETAL: Normal. IMPRESSION: 1. Negative for lung cancer screening purposes. LungRADS CATEGORY: 1 - Negative RADIOLOGIST RECOMMENDATION: Continue annual screening with low-dose CTchest in 12 months. us Wesley Groves MD CT Final Resul t * LIPID PANEL W REFLEX MEASURED LDL (12/19/2023 9:37 AM CDT) CHOLESTEROL, TOTAL 101 <200 mg/dL [facility] HDL CHOLESTEROL 45 > OR = 40 mg/dL [facility] TRIGLYCERIDES 105 <150 mg/dL [facility] LDL-CHOLESTEROL 37 mg/dL (calc) [facility] Comment: Reference range: <100 Desirable range <100 mg/dL for primary prevention; <70 mg/dL for patients with CHD or diabetic patients with > or = 2 CHD risk factors. LDL-C is now calculated using the Spencer calculation, which is a validated novel method providing better accuracy than the Friedewald equation in the estimation of LDL-C. Hitesh AGUILAR et al. MARTA. 2013;310(19): 8527-9077 (http://education.MentiNova/faq/EOZ235) CHOL/HDLC RATIO 2.2 <5.0 (calc) [facility] NON HDL CHOLESTEROL 56 <130 mg/dL (calc) [facility] Comment: For patients with diabetes plus 1 major ASCVD risk factor, treating to a non-HDL-C goal of <100 mg/dL (LDL-C of <70 mg/dL) is considered a therapeutic option. Blood BLOOD SPECIMEN / Unknown 12/19/2023 9:37 AM CDT 12/19/2023 9:37 AM CDT Wesley Groves MD CHEMISTRY Final Resul t All My Data [facility] [address] [place] [address], [facility] [address] [place] [address] * ANTI HCV (03/11/2020 2:01 PM SQL SERVER CONSULTANT) Pathologist [facility] HEPATITIS C ANTIBODY Non-React donna Non-React donna 03/11/2020 10:59 PM SQL SERVER CONSULTANT [facility] Comment:Antibodies to HCV no t detected; does not exclude the possibility of exposure to HCV. Blood BLOOD SPECIMEN / Unknown Butterfly / Unknown 03/11/2020 2:01 PM SQL SERVER CONSULTANT 03/11/2020 2:01 PM SQL SERVER CONSULTANT Hitesh Ryder MD SEND OUTS Final Res ult [facility] [address] [place] [address], [place] * ANTI HIV 1/2 (03/11/2020 2:01 PM SQL SERVER CONSULTANT) HIV-1/HIV-2 ANTIBODY Non-Reacti ve Non-Reacti ve 03/11/2020 9:28 PM SQL SERVER CONSULTANT [facility] Comment:HIV-1 p24 and HIV-1/ HIV-2 Ab not detected. Blood BLOOD SPECIMEN / Unknown Butterfly / Unknown 03/11/2020 2:01 PM SQL SERVER CONSULTANT 03/11/2020 2:01 PM SQL SERVER CONSULTANT Hitesh Ryder MD SEND OUTS Final Res ult Performing Organization Address City/[facility]/ZIP Co de Phone Number [facility] 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 Treatment Guidelines 05/23/2021 Treatment Guidelines 07/01/2020 Treatment Guidelines 07/31/2016 3:55 PM MED CARE & RESUSCITATION - 07/31/2016 Treatment Guidelines 05/24/2015 3:46 PM ME D CARE & RESUSCITATION - 05/24/2015 Treatment Guidelines 09/15/2014 11:15 AM M ED CARE & RESUSCITATION Care Teams Storage Facility Housekeeper Relationship Specialty [place] [address] [place] [address] PCP - General Family Practice 05/23/22 [place] [address] [facility] [address] [place] [address] Psychiatry Physician Barn Manager 09/06/16 Zack Marin MBBS [address] [facility] [address] [place] [address] Cardiology - CHF Cardiovascular Disease 04/13/17 Ani Handley DPM [address] [place] [address] PODIATRY Surgery - Podiatric 06/24/21 [place] [address] [facility] [address] [place] [id number] Gastroenterology Surgery - Colon and Rectal 06/24/21 Nader Sun PA [address] [facility] [address] [place] [address] Pain Management Physician Barn Manager 06/24/21 Yung Roque MD [address] [facility] [address] [place] [address] Neurology Neurology 06/24/21 America Ambrocio MD [address] [facility] [address] [place] [address] Pain Medicine - Anesthesiology 03/06/24
--- OUTSIDE RECORDS SUMMARY | 2024-04-20 12:35 | XMS_ITS | Data Portability ---
Author Organization [place] [facility] Address [address] [place] [address] Care Team Providers Care Hand Cooper Helper Name Role Phone CHANDLER ELI Primary Care Provider [phone] [facility] Primary Care Pro vider Assessment Encounter Date Assessment Date Assessment LastModified by Organization Details LastModified Time 12/04/2022 12/04/2022 52yo M with h/o BPH here for medication follow up. [email or web address] Not available 12/04/2022 14:51:45 12/12/2023 12/12/2023 52yo M with h/o BPH here for medication follow up. [email or web address] Not available 12/11/2023 00:09:22 Plan of Treatment Reminders Order Date Submit Date Provider Last Modified By Organization Details Last Modified Time Details Appointments None recorded. Lab PSA, total, serum or plasma 2022 023 [facility], [address], [address], [place], [address], 3 12:47:19 urinalysis, dipstick 2022 023 [email or web address] [facility], [address], [address], [place], [address], 3 12:20:51 urinalysis, microscopic 2022 023 [facility], [address], [address], [place], [address], 4 05:01:52 Referral None recorded. Procedures None recorded. Surgeries None recorded. Imaging None recorded. Medication Orders tamsulosin 0.4 mg capsule 2023 024 PEDRO LUIS [id number], [address], [place], [address], 4 09:14:48 tamsulosin 0.4 mg capsule 2022 023 [email or web address] [id number], [address], [place], [address], 3 14:51:45 tamsulosin 0.4 mg capsule 2022 023 [id number], [address], [place], [address], 3 18:39:49 Patient TargetsNo targets recorded. Patient InstructionsNo instructions recorded. Reason for Referral None Reported. Results Created Date Observation Date Name Description Value Unit Range Abnormal Flag Note LastModifiedBy Organization Detail LastModifiedTime 10/18/19 23 10/17/2022 U[facility] WITHO UT MICRO - CS URISC AN blood - uriscan NEGATI VE negati ve Not Available [facility] [address] [facility] [address], [place], [address], 10/17/2022 10:13:12 10/18/19 23 10/17/2022 UA WITHO UT MICRO - CS URISC AN bilirubin - uriscan NEGATI VE mg/dL negati ve Not Available [facility] [address] [facility] [address], [place], [address], 10/17/2022 10:13:12 10/18/19 23 10/17/2022 UA WITHO UT MICRO - CS URISC AN urobilinogen - uriscan NORMAL mg/dL normal Not Available [facility] [address] [facility] [address], [place], [address], 10/17/2022 10:13:12 10/18/19 23 10/17/2022 UA WITHO UT MICRO - CS URISC AN ketones - uriscan NEGATI VE mg/dL negati ve Not Available [facility] [address] [facility] [address], [place], [address], 10/17/2022 10:13:12 10/18/19 23 10/17/2022 UA WITHO UT MICRO - CS URISC AN protein - uriscan 10 mg/dL negati ve abnormal Not Available [facility] [address] [facility] [address], [place], [address], 10/17/2022 10:13:12 10/18/19 23 10/17/2022 UA WITHO UT MICRO - CS URISC AN nitrites - uriscan NEGATI VE negati ve Not Available [facility] [address] [place] [address] [address], [place], [address], 10/17/2022 10:13:12 10/18/19 23 10/17/2022 UA WITHO UT MICRO - CS URISC AN glucose - uriscan NEGATI VE mg/dL negati ve Not Available [facility] [address] [facility] [address], [place], [address], 10/17/2022 10:13:12 10/18/19 23 10/17/2022 UA WITHO UT MICRO - CS URISC AN pH - uriscan 7.00 5.00-9 .00 Not Available [facility] [address] [place] [address] [address], [place], [address], 10/17/2022 10:13:12 10/18/19 23 10/17/2022 UA WITHO UT MICRO - CS URISC AN sp. gravity - uriscan 1.02 1.01-1 .03 Not Available [facility] [address] [place] [address] [address], [place], [address], 10/17/2022 10:13:12 10/18/19 23 10/17/2022 UA WITHO UT MICRO - CS URISC AN leukocytes - uriscan NEGATI VE negati ve Not Available [facility] [address] [facility] [address], [place], [address], 10/17/2022 10:13:12 10/18/19 23 10/17/2022 UA WITHO UT MICRO - CS URISC AN color - uriscan YELLOW lt. yellow ;yello w Not Available [facility] [address] [facility] [address], [place], [address], 10/17/2022 10:13:12 10/18/19 23 10/17/2022 UA WITHO UT MICRO - CS URISC AN clarity - uriscan CLEAR clear Not Available [facility] [address] [facility] [address], [place], [address], 10/17/2022 10:13:12 10/18/19 23 10/17/2022 UA WITHO UT MICRO - CS URISC AN total urine volume (mL) 40 CC /mL ----- ----- ----- ----- ----- ----- ----- ----- ----- ----- ----- ----- ----- ----- ---- *Plerandi sheets note the follo wing minim um quant ities for addit ional urine testi ng: - Atypi cals: 3 mL - Cytol ogy: 20 mL - GC/CH : 2 mL - FISH: 30 mL - Atypi cals w/ GC/CH : 5 mL - Cytol ogy PLUS FISH: 50 mL - Urine Cultu re: 3 mL ----- ----- ----- ----- ----- ----- ----- ----- ----- ----- ----- ----- ----- ----- ---- This lab resul t is being provi ded to you and your provi paulino at the same time in compl iance with the ry Cures Act. Your provi paulino may not have had time to revie w and make recom menda tions based on the resul t. Pleas e allow up to one week for provi paulino revie w. Not Available [facility] [address] [facility] [address], [place], [address], 10/17/2022 10:13:12 10/18/19 23 10/17/2022 PSA, TOTAL PSA, total 0.44 NG/mL 0.00-4 .00 This lab resul t is being provi ded to you and your provi paulino at the same time in [facility] with the u ry Cures Act. Your provi paulino may not have had time to revie w and make recom menda tions based on the resul t. Pleever e allow up to one week for provi paulino revie w. Not Available [facility] [address] [facility] [address], [place], [address], 10/17/2022 12:47:19 Result Notes None recorded. Problems Name Problem SNOMED Code Status Onset Date Resolution Date Notes Provider Name and Address Organization Details Recorded Time Urgent desire to urinate 17223428 Active 2022 Loretta gardner [facility] 3 09:57:42 Increased frequency of urination 515363098 Active 2022 Loretta gardner, [facility] 3 09:57:49 Hyperlipidemia 86616337 Active 2022 Loretta gardner [facility] 3 09:58:15 Diabetes mellitus 87843298 Active 2022 Loretta gardner, [facility] 3 09:58:28 Depressive disorder 72680934 Active 2022 Loretta gardner, [facility] 3 09:58:33 Primary malignant neoplasm of anus 93156822 Active 2022 Loretta garnder, [facility] 3 09:58:42 Incontinence 11007280 Active 2022 Loretta gardner [facility] 09:59:29 History of statin therapy 710166683 Active 2022 Ani gardner [facility] 3 14:35:46 Problem Notes None recorded. Procedures Surgical History Date Name Laterality Status Provider Name and Address Organization Details Recorded Time 12/12/19 24 Bladder Scan completed Ani Pickard [facility] 12/12/2023 09:10:00 12/05/19 23 Bladder Scan completed Yesika Cruz [facility] 12/04/2022 14:34:55 10/18/19 23 Bladder Scan completed Loretta Shah [facility] 10/17/2022 10:06:42 07/01/19 Diagnostic colonoscopy completed Not Available Health Note 10/15/2022 11:59:36 Removal of sperm duct(s) completed Not Available Health Note 12/09/2023 17:47:54 Imaging Results None recorded. Procedure Notes None recorded. Medical Equipment None Reported. Allergies No known drug allergies Medications Name Sig Start Date Stop Date Status Note LastModified by Organization Details LastModified Time quetiapine 300 mg tablet TAKE 1 TABLET BY MOUTH EVERY MORNING AND 2 TABLETS BY MOUTH AT BEDTIME. active Not Available Not Available No t Available azithromyci n 250 mg tablet TAKE 2 TABLETS BY MOUTH TODAY, THEN TAKE 1 TABLET DAILY FOR 4 DAYS 10/17 completed Not Available Not Available Not Available metoprolol succinate ER 50 mg tablet,exte nded release 24 hr TAKE 1 TABLET BY MOUTH EVERY DAY active Not Available Not Available No t Available ondansetron HCl 4 mg tablet TAKE 1 TABLET BY MOUTH EVERY 8 HOURS NEEDED FOR NAUSEA AND VOMITING active Not Available Not Available No t Available prednisone 20 mg tablet PLEASE SEE ATTACHED FOR DETAILED DIRECTION S active Not Available Not Available No t Available phentermine 15 mg capsule TAKE 1 CAPSULE (15 MG) BY MOUTH ONCE DAILY BEFORE A MEAL. active Not Available Not Available No t Available Accu-Chek Softclix Lancets TEST 1 TIME DAILY active Not Available Not Available No t Available olanzapine 10 mg tablet TAKE 1/2 TABLET BY MOUTH TWICE DAILY active Not Available Not Available No t Available aspirin 81 mg tablet,joao yed release TAKE 1 TABLET (81 MG) BY MOUTH ONCE DAILY WITH A MEAL. active Not Available Not Available No t Available Nicotrol 10 mg inhalation cartridge INHALE 10MG BY MOUTH EVERY HOURS WHILE AWAKE NEEDED FOR NICOTINE CRAVING active Not Available Not Available No t Available amoxicillin 500 mg tablet TAKE 1 TABLET (500 MG) BY MOUTH THREE TIMES DAILY FOR 7 DAYS. 10/17 completed Not Available Not Available Not Available glimepiride 2 mg tablet TAKE 2 TABLETS (4 MG) BY MOUTH ONCE DAILY WITH A MEAL. FOR DIABETES. active Not Available Not Available No t Available famotidine 20 mg tablet TAKE 1 TABLET BY MOUTH TWICE A DAY active Not Available Not Available No t Available tamsulosin 0.4 mg capsule Take 1 capsule every day by oral route for 90 days, for BPH. 2023 active Not Available Not Available Not Jesse morgan imiquimod 5 % topical cream packet APPLY 1 PACKET TOPICALLY IN THE EVENING ON SUNDAY. active Not Available Not Available No t Available baclofen 10 mg tablet TAKE 1/2 TABLET BY MOUTH UP TO MAX OF 3 TIMES DAILY active Not Available Not Available No t Available gabapentin 300 mg capsule TAKE 3 CAPS BY MOUTH 3X DAILY active Not Available Not Available No t Available hydroxyzine HCl 25 mg tablet TAKE 1 TABLET (25 MG) BY MOUTH EVERY 6 HOURS IF NEEDED FOR ANXIETY. active Not Available Not Available No t Available fluoxetine 20 mg capsule TAKE 3 CAPSULES BY MOUTH EVERY DAY active Not Available Not Available No t Available metformin ER 500 mg tablet,exte nded release 24 hr TAKE 2 TABLETS (1,000 MG) BY MOUTH ONCE DAILY WITH EVENING MEAL. FOR DIABETES. active Not Available Not Available No t Available olanzapine 20 mg tablet TAKE 1 TABLET BY MOUTH EVERYDAY AT BEDTIME active Not Available Not Available No t Available Ventolin HFA 90 mcg/actuati on aerosol inhaler INHALE 2 PUFFS BY MOUTH EVERY 4 HOURS IF NEEDED FOR SHORTNESS OF BREATH. active Not Available Not Available No t Available buspirone 15 mg tablet TAKE 1 TABLET BY MOUTH TWICE A DAY active Not Available Not Available No t Available oxycodone 5 mg tablet active Not Available Not Available No t Available hydroxyzine pamoate 25 mg capsule TAKE 1-2 CAPSULES BY MOUTH AT BEDTIME NEEDED FOR SLEEP active Not Available Not Available No t Available celecoxib 400 mg capsule TAKE 1 CAPSULE (400 MG) BY MOUTH 2 TIMES DAILY WITH MEALS. *NEEDS PA FOR 2/DAY active Not Available Not Available No t Available rosuvastati n 20 mg tablet TAKE 1 TAB BY MOUTH AT BEDTIME FOR CHOLESTER OL active Not Available Not Available No t Available bupropion HCl XL 150 mg 24 hr tablet, extended release TAKE 1 TABLET BY MOUTH EVERY DAY DIRECTED active Not Available Not Available No t Available duloxetine 30 mg capsule,del ayed release TAKE 1 CAPSULE BY MOUTH EVERY DAY active Not Available Not Available No t Available Tradjenta 5 mg tablet TAKE 1 TABLET BY MOUTH ONCE DAILY FOR DIABETES active Not Available Not Available No t Available Belsomra 20 mg tablet TAKE 1 TABLET BY MOUTH EVERY DAY AT BEDTIME NEEDED FOR SLEEP active Not Available Not Available No t Available Accu-Chek Guide test strips TEST 1 TIME DAILY active Not Available Not Available No t Available Accu-Chek Guide Glucose Meter TEST 1 TIME DAILY active Not Available Not Available No t Available Trelegy Ellipta 100 mcg-62.5 mcg-25 mcg powder for inhalation INHALE 1 PUFF BY MOUTH EVERY DAY active Not Available Not Available No t Available Vitals Date Recorded Body weight Body mass index (BMI) Body height Provider Name and Address Organization Details Last Updated DateTime 10/17/2022 53769.80095 85412 g 29.5 kg/m2 175.26 cm Not Available Health Note 10/17/2022 09:48:55 Date Recorded Body height Body mass index (BMI) Body weight Provider Name and Address Organization Details Last Updated DateTime 12/04/2022 175.26 cm 29.5 kg/m2 65317.47 g Yesika Cruz [facility] 12/04/2022 14:34:29 Date Recorded Body weight Body height Body mass index (BMI) Provider Name and Address Organization Details Last Updated DateTime 12/12/2023 85736.15594 12062 g 175.26 cm 27.9 kg/m2 Not Available Health Note 12/12/2023 08:47:35 Social History Question Answer Notes LastModified by Organizat ion Details LastModified Time Tobacco Smoking Status Current Every Day Smoker Not Available Health Note 12/09/2023 17:47:54 Do You Have An Advance Directive? No [email or web address] Information not available 12/09/2023 What Is Your Level Of Alcohol Consumption? None [email or web address] Information not available 12/12/2023 What Is Your Level Of Caffeine Consumption? None [email or web address] Information not available 12/09/2023 How Much Tobacco Do You Chew? None [email or web address] Information not available 12/09/2023 Do You Or Have You Ever Used E-cigarettes Or Vape? Former User Of Electronic Cigarettes [email or web address] Information not available 12/09/2023 Race White [email or web address] Information no t available 12/14/2022 Ethnicity Not /Latin o [email or web address] Information not available 12/14/2022 Preferred Language [place] [email or web address] Information not available 10/17/2022 Recreational Drug Use No Information not available 12/14/2022 Could You Be ? No [email or web address] Information not available 12/14/2022 Do You Have A Medical Power Of Manager Federal? No [email or web address] Information not available 12/09/2023 What Was The Date Of Your Most Recent Tobacco Screening? 12/11/2023 [email or web address] Information not available 12/09/2023 What Is Your Relationship Status? Single [email or web address] Information not available 12/09/2023 Are You Sexually Active? No [email or web address] Information not available 12/09/2023 Do You Or Have You Ever Used Smokeless Tobacco? Former Smokeless Tobacco User [email or web address] Information not available 12/09/2023 How Much Tobacco Do You Smoke? 1 PPW [email or web address] Information not available 12/09/2023 Do You Use Any Illicit Or Recreational Drugs? No [email or web address] Information not available 12/09/2023 Has Tobacco Cessation Counseling Been Provided? Yes Information not available 10/17/2022 On What Date Was Tobacco Cessation Counseling Provided? 10/17/2022 Information not available 10/17/2022 How Many Years Have You Smoked Tobacco? 43 [email or web address] Information not available 12/09/2023 Do You Or Have You Ever Used Any Other Forms Of Tobacco Or Nicotine? Yes [email or web address] Information not available 10/17/2022 How Many Days In The Past Year Have You Consumed 5 Or More Drinks? 10 [email or web address] Information no t available 12/09/2023 Sex: Unknown Functional Status None recorded. Mental Status None recorded. Family History Relationship Description Onset Age of this Age Resolved Age Notes LastModified by Organization Details LastModified Time Maternal Grandfather Family history of cancer of colon [email or web address] Not available 2022 11:59:34 Medical History Condition Response High Blood Pressure N Kidney Stones N Lung Disease N Depression Y GERD/Acid Reflux N Sexually Transmitted Infection N Diabetes Y Bleeding Disorder N Cancer Y High Cholesterol Y Heart Disease N Immunizations Vaccine Type Date Status Note Provider Nam e and Address Organization Details Recorded Time SARS-COV-2 (COVID-19) vaccine, UNSPECIFIED 2 completed Not Available Health Note 12/09/2023 17:47:57 zoster live 4 completed Ani Pickard null, [facility] 12/12/2023 09:10:10 zoster recombinant 4 completed Ani Pickard null, [facility] 12/12/2023 09:10:10 Pneumococcal conjugate PCV20, polysaccharide [id number] conjugate, adjuvant, PF 4 completed Ani Pickard null, [facility] 12/12/2023 09:10:10 Influenza, split virus, quadrivalent, PF 3 completed [facility] 12/12/2023 09:10:11 SARS-COV-2 (COVID-19) vaccine, UNSPECIFIED 2 completed Not Available [facility] 12/04/2022 14:27:53 COVID-19, mRNA, LNP-S, PF, 100 mcg/0.5mL dose or 50 mcg/0.25mL dose 1 completed [email or web address] 10/17/2022 09:56:31 COVID-19, mRNA, LNP-S, PF, 100 mcg/0.5mL dose or 50 mcg/0.25mL dose 1 completed [facility] 10/17/2022 09:56:31 COVID-19, mRNA, LNP-S, PF, 100 mcg/0.5mL dose or 50 mcg/0.25mL dose 2 completed Loretta Alyssa null, [facility] 10/17/2022 09:56:31 COVID-19, mRNA, LNP-S, PF, 100 mcg/0.5mL dose or 50 mcg/0.25mL dose 1 completed [facility] 10/17/2022 09:56:31 COVID-19, mRNA, LNP-S, bivalent, PF, 50 mcg/0.5 mL or 25mcg/0.25 mL dose 2 completed Loretta Alyssa null, [facility] 10/17/2022 09:56:31 pneumococcal polysaccharide PPV23 0 completed Loretta Alyssa null, [facility] 10/17/2022 09:56:31 Tdap 8 completed Loretta Alyssa null, [facility] 10/17/2022 09:56:31 Influenza, split virus, quadrivalent, PF 7 completed Loretta Alyssa null, [facility] 10/17/2022 09:56:31 Influenza, split virus, quadrivalent, PF 8 completed Loretta Alyssa null, [facility] 10/17/2022 09:56:31 Influenza, split virus, quadrivalent, PF 9 completed Loretta Alyssa null, [facility] 10/17/2022 09:56:31 Influenza, split virus, quadrivalent, PF 8 completed Loretta Alyssa null, [facility] 10/17/2022 09:56:31 Influenza, split virus, quadrivalent, PF 1 completed Loretta Alyssa null, [facility] 10/17/2022 09:56:31 Influenza, split virus, quadrivalent, PF 7 completed Loretta Alyssa null, [facility] 10/17/2022 09:56:31 Influenza, split virus, quadrivalent, PF 2 completed Loretta Alyssa null, [facility] 10/17/2022 09:56:31 Past Encounters Encounter ID Performer Location Encounter Start Date Encounter Closed Date Diagnosis/Indication Diagnosis SNOMED-CT Code Diagnosis ICD10 Code Diagnosis Note [id number] Chilo Bolaños MD [facility] [address] [phone] 10/17/2022 09:48:47 10/18/2022 08:15:19 Slowing of urinary stream 20125865 R39.12 We discussed the ongoing slowing of the urinary stream and some of the frequency and urgency feelings that he has. I think a trial of an alpha-bloc ker would be appropriat e with follow-up with RAYMOND regalado for cystoscopy for failure of medication s Screening for malignant neoplasm of prostate 003807433 Z12.5 PSA drawn today and returns normal at 0.44 Increased frequency of urination 550263369 R35.0 Increased frequency of urination associated with dysuria. Urinalysis returns as negative. [id number] JUNE [facility] [address] [place] [phone] 12/04/2022 14:25:46 12/04/2022 14:59:56 Slowing of urinary stream 40179694 R39.12 -pt has noticed an significan t improvemen t in symptoms. He notes that he is able to hold urine for longer periods of time. Medication has also helped with FOS. He reports some dizziness but not too bothersome .-Pt would like to continue with medication . Prescripti on refilled-P godfrey for follow up in year Urgent neal nikko to urinate 65802712 R39.15 stable [id number] JUNE [facility] [address],[facility] e [address] [place] [id number] 12/12/2023 08:46:45 12/13/2023 08:26:15 Slowing of urinary stream 92868973 R39.12 -symptoms have been stab;e with tamsulosin . He denies SE. HE will like to continue with medication -Bladder emptying well-Presc ription refilled. Plan for follow up in year Urgent neal nikko to urinate 52224822 R39.15 stable Health Concerns Section Related Observation LastModified by Organization Detai ls LastModified Time None Recorded Concern Status LastModified by Organization Details LastModified Time None Recorded Advance Directives Directive N: Payers Encounter Date Sequence Insurance Name Policy Number Policy Amador Covered Member ID Amador Member ID Guarantor Name 10/17/2022 2 [employer] (MEDICAID HMO) Edward Fraga [id number] Edward Fraga 12/04/2022 2 [employer] (MEDICAID HMO) Edward Fraga [id number] Edward Fraga 12/04/2022 1 [place] [employer] [facility] Edward Fraga [id number] Edward Fraga 12/12/2023 2 [facility] (MEDICAID HMO) Edward Fraga [id number] Edward Fraga 12/12/2023 1 [place] [employer] [facility] Edward Fraga [id number] Edward Fraga Notes Date Note Type Note Provider Name and Address Organization Details Recorded Time 10/17/2022 text/html Chief complaint:When I have to urinate I really got to run to the bathroomslow flow. Hesitancy and some dysuria with voiding with slow urinary flow.urgency. Feels occasionally does not make it to the bathroom.Gradually progressive over the last several months.No bleeding. No history of infections. He has not found any activities that make symptoms better or worse Chilo Bolaños MD [address] [place] [address],[address], [phone], [facility] 10/17/2022 18:43:24 12/04/2022 text/html 52yo M with h/o anal carcinoma and BPH here for yearly follow up.-Pt with h/o anal carcinoma with most recent negative biopsy-Presented to PCP 08/30/22 with increased urinary urgency and frequency with dysuria. UA unremarkable-Pt was started on tamsulosin last visitFOS: moderate/weak, intermittent, hesistency, straining, Post void dribblingDF:every 2hrs NF: 2No sensation incomplete emptying: IPSS: 21PVR: 38ml Jorden Saleh PA-C [address] [place] [address],[address], [address], [facility] 12/04/2022 15:07:09 12/12/2023 text/html 53yo M with h/o anal carcinoma and BPH here for yearly follow up. -Pt with h/o anal carcinoma. negative biopsy in 2022 -Pt is currently on tamsulosin. No SE-Pt denies any voiding issues. continues to have FOS: moderate/weak, intermittent, hesitancy, straining, Post void dribblingDF:every 2hrs NF: 1-2.No UTI or blood in urine since last visit IPSS: 25PVR: 91ml Jorden Saleh PA-C [address] [facility],[address], [place], [address], [facility] 12/19/2023 23:22:22
--- NOTE | 2024-04-20 13:16 | CRLHL7_ITS ---
For Patients: As a result of the Century Cures Act, medical imaging exams and procedure reports are released immediately into your electronic medical record. You may view this report before your referring provider. If you have questions, please contact your health care provider. INDICATION: Dizziness. TECHNIQUE: Noncontrast CT images of the brain. COMPARISON: None. FINDINGS: The ventricles and sulci are within normal limits for patient age. No mass effect or midline shift. John-white differentiation is maintained. No acute intracranial hemorrhage or pathologic extra-axial fluid collection. Globes are symmetric. The calvarium is intact. Mild ethmoid sinus mucosal thickening. Trace left mastoid air cell opacification. IMPRESSION: No acute intracranial hemorrhage or mass effect. Please note that all CT scans at this facility use dose modulation, iterative reconstruction, and/or weight-based dosing when appropriate to reduce radiation dose to as low as reasonably achievable. Dictated by Suresh Rico MD @ 04/20/2024 2:27:42 PM (Electronically Signed)
--- NOTE | 2024-04-20 13:16 | CRLHL7_ITS ---
For Patients: As a result of the Century Cures Act, medical imaging exams and procedure reports are released immediately into your electronic medical record. You may view this report before your referring provider. If you have questions, please contact your health care provider. INDICATION: Dizziness. TECHNIQUE: CTA head with contrast bolus tracking, 3D angiographic rendering using maximum intensity projection (MIP) and images permanently archived. FINDINGS: There is normal opacification of the intracranial vasculature. There is no large vessel occlusion. No aneurysm is identified. IMPRESSION: Unremarkable head CTA. Please note that all CT scans at this facility use dose modulation, iterative reconstruction, and/or weight-based dosing when appropriate to reduce radiation dose to as low as reasonably achievable. Dictated by Steven Escobar MD @ 04/21/2024 7:43:38 AM (Electronically Signed)
--- NOTE | 2024-04-20 13:16 | CRLHL7_ITS ---
For Patients: As a result of the Century Cures Act, medical imaging exams and procedure reports are released immediately into your electronic medical record. You may view this report before your referring provider. If you have questions, please contact your health care provider. INDICATION: Dizziness. TECHNIQUE: CTA neck with contrast bolus tracking, 3D angiographic rendering using maximum intensity projection (MIP) and images permanently archived. FINDINGS: There is no significant carotid artery stenosis or dissection. There is no significant vertebral artery stenosis or dissection. The soft tissues of the neck are within normal limits. Postoperative and degenerative changes are noted in the cervical spine. IMPRESSION: No significant carotid or vertebral artery stenosis or dissection. Please note that all CT scans at this facility use dose modulation, iterative reconstruction, and/or weight-based dosing when appropriate to reduce radiation dose to as low as reasonably achievable. Dictated by Steven Escobar MD @ 04/21/2024 7:42:33 AM (Electronically Signed)
[2024-04-20 13:46] LABS: Creatinine, Point-of-Care* 0.8 mg/dl (0.6-1.3)
--- OUTSIDE RECORDS SUMMARY | 2024-04-20 13:51 | XMS_ITS | Encounter Summary ---
Author Organization [facility] Address [address] [place] [address] Care Team Providers Care Mate Ship Name Role Phone Juan Diego Herrera MD Primary Care Provider [phone] Encounter Details Date Type Department Care Team [...] on file Legal Sex Male 5:21 PM AUTOMOTIVE PARTS ADVISOR Gender Identity Not on file Sexual Orientation Not on file documented as of this encounter Plan of Treatment Not on file documented as of this encounter Visit Diagnoses Not on filedocumented in this encounter Care Teams Mate Ship Relationship Specialty Start Date End Date Juan Diego Herrera MD [facility] [address] [place] [address] PCP - General Urgent Care 07/16/17 documented as of this encounter
--- OUTSIDE RECORDS SUMMARY | 2024-04-20 13:51 | XMS_ITS | Clinical Summary ---
Author Organization [facility] Address [address] [place] [address] Care Team Providers Care Coal Bagger Name Role Phone Wesley Groves MD Primary Care Provider [phone] Allergies Active Allergy Reactions Criticality Noted Date [...] nicotine (NICOTROL) 10 MG/ML SOLN inhalation solution [place] 1 spray in nostril every hour as [...] on file Legal Sex Male 4:35 AM CONDUCTOR SYMPHONIC ORCHESTRA Gender Identity Not on file Sexual Orientation Not on file Last Filed Vital Signs Vital Sign Reading Time Taken Comments Blood Pressure 132/94 02/22/2023 2:02 PM CONDUCTOR SYMPHONIC ORCHESTRA Pulse 67 02/22/2023 12:08 PM CONDUCTOR SYMPHONIC ORCHESTRA Temperature 36.3 C (97.3 F) 02/22/2023 11:26 AM CONDUCTOR SYMPHONIC ORCHESTRA Respiratory Rate 18 02/22/2023 12:08 PM CONDUCTOR SYMPHONIC ORCHESTRA Oxygen Saturation 95% 02/22/2023 2:02 PM CONDUCTOR SYMPHONIC ORCHESTRA Inhaled Oxygen Concentration - - Weight 92.1 [...] EMBOLISM W CONTRAST STAT 03/20/2021 10:22 AM CONDUCTOR SYMPHONIC ORCHESTRA [facility] COLONOSCOPY THRU STOMA, DIAGNOSTIC Routine 09/28/2008 [...] POCT Final Re sult RH LABORATORY POC [facility] Acute Care Lab [address] [facility] (1st floor, no room number) [place] [address], [facility] [phone] * CT Chest Pulmonary Embolism w Contrast (03/20/2021 10:22 AM CONDUCTOR SYMPHONIC ORCHESTRA) Anatomical Region Laterality Modality Chest, SUBRAD CT BODY, UMP CT CHEST Computed Tomography 03/20/2021 10:1 0 AM CONDUCTOR SYMPHONIC ORCHESTRA Impressions 03/20/2021 10:50 AM CONDUCTOR SYMPHONIC ORCHESTRA IMPRESSION: 1. No pulmonary embolism demonstrated. 2. Minimal peripheral atelectasis and/or fibrosis. 3. Minimally prominent right hilar lymph node of uncertain etiology and significance, stable since comparison. Narrative 03/20/2021 10:50 AM CONDUCTOR SYMPHONIC ORCHESTRA EXAM: CT CHEST PULMONARY EMBOLISM WITH CONTRAST LOCATION: [facility] DATE/TIME: 03/20/2021, 10:10 AM INDICATION: Hypoxia. PE [...] CT CHEST PULMONARY EMBOLISM WITH CONTRAST LOCATION: [facility] DATE/TIME: 03/20/2021, 10:10 AM INDICATION: Hypoxia. PE [...] AM CDT) Hepatitis C Antibody Negative NEG [facility] 06/06/2005 11:2 3 AM CDT 06/06/2005 11:25 AM CDT Jose Sheehan MD LABORATORY Final Resu lt [facility] [address] [place] [address] * HIV-1/HIV-2, SCREEN (06/06/2005 11:23 AM CDT) HIV 1&2 Antibody Negative NEG [facility] 06/06/2005 11:2 3 AM CDT 06/06/2005 11:25 AM CDT Jose Sheehan MD LABORATORY Final Resu lt [facility] [address] [place] [address] * (ABNORMAL) A.M.A. LIPID PANEL (06/06/2005 11:23 AM CDT) Cholesterol 216(H) 0 - 200 mg/dL [facility] Comment: LDL Cholesterol is the primary guide to therapy: LDL-cholesterol goal in high risk patients is <100 mg/dL and in very high risk patients is <70 mg/dL. The NCEP recommends further evaluation of: patients with cholesterol <200 mg/dL if additional risk factors are present, cholesterol >240 mg/dL, triglycerides >150 mg/dL, or HDL <40 mg/dL. Triglycerides 149 0 - 150 mg/dL [facility] HDL Cholesterol 53 40 - 110 mg/dL [facility] LDL Cholesterol Calculated 133(H) 0 - 129 mg/dL [facility] Comment: LDL Cholesterol is the primary guide to therapy: LDL-cholesterol goal in high risk patients is <100 mg/dL and in very high risk patients is <70 mg/dL. VLDL-Cholesterol 30 0 - 30 mg/dL [facility] Cholesterol/HDL Ratio 4.1 0.0 - 5.0 [facility] 06/06/2005 11:2 3 AM CDT 06/06/2005 11:25 AM CDT Jose Sheehan MD LABORATORY Final Resu lt [facility] [address] [place] [address] from Last 3 Months or Most Recently Relevant to Health Maintenance Insurance [employer] MEDICARE [facility]LY [facility] MEDICARE Advance Directives For more information, please contact: [phone] * Full Code (Latest Code Status on [...] 1:58 PM 02/19/2017 2:33 PM Care Teams Coal Bagger Relationship Specialty [place] [address] [place] [address] PCP - General 02/22/23
--- OUTSIDE RECORDS SUMMARY | 2024-04-20 13:51 | XMS_ITS | Clinical Summary ---
Author Organization [facility] Address [address] [place] [address] Care Team Providers Care Drilling Field Operator Name Role Phone Juan Diego Herrera MD Primary Care Provider [phone] Source Comments You are receiving this document as you are listed as the primary care provider,follow-up provider, or the patient has been referred to you for consultation.This is in compliance with the Medicare andKindred Healthcarecaid EHR Incentive Program,which states Providers who transition their patient to another setting of careor provider of care or refers their patient to another provider of care shouldprovide summary care record for each transition of care or referral. [facility] Allergies No known active allergies Medications sildenafil [...] injury 01/31/2016 Overview (01/31/2016): Overview: Went Through [facility] at 14 year old. Early 2015: [facility]. 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
--- OUTSIDE RECORDS SUMMARY | 2024-04-20 13:51 | XMS_ITS | Clinical Summary ---
Author Organization [facility] Address [address] [place] [address] Care Team Providers Care Clinic Supervisor Name Role Phone Ruddy Astudillojero TORRES Unavailable [phone] Zack Marin MBRICHARD Unavailable + Ani Handley DPM Unavailable [phone] Leigh Lynne MD Unavailable [phone] Nader Sun Unavailable Yung Roque MD Unavailable [phone] Wesley Groves MD Primary Care Provider America Ambrocio MD Unavailable [phone] Allergies Active Allergy Reactions Criticality Noted Date [...] two times daily. 09/17/19 24 Active fluticasone qpw-bnapxxjvjuhy-q ilanterol (Trelegy Ellipta) 100-62.5-25 mcg inhalerIndications :COPD [...] 02/23/2017 Overview (02/23/2017): January 2017: Admitted to [facility] with creatinine of 3.77, thought to be possibly prerenal Hypercholesterolemia 06/11/2016 Overview (10/23/2017): May 2016: Atorvastatin (Lipitor) 40mg started by Cardiology June 2017: due to high Triglycerides, Ingredient Handler stopped Atorvastatin (Lipitor) and changed to crestor. [...] (traumatic brain injury) Overview (06/25/2014): Went Through [facility] at 14 year old. Early 2014: [facility]. JODIE (obstructive sleep apnea) Overview (04/19/2016): Mar 2016: Sleep study at [facility], AHI 72 Resolved Problems Problem Noted Date Diagnosed Date Resolved Date Alcohol withdrawal seizure w ithout complication 04/05/2016 10/19/2020 Overview (04/05/2016): January 2016. Methamphetamine dependence 07/30/2012 0 04/06/2021 Cannabis dependence 07/30/2012 07/18/19 Alcohol dependence 07/30/2012 3 Overview (11/20/2014): Oct 2014: At [facility] outpatient chem treatment for history of meth, alcohol. Alcoholism in remission 07/09/201205/2012 Marihuana abuse 07/09/2012 07/30/2012 Bipolar disorder (manic depression) 06/18/2012 07/30/2012 Encounters Date Type Department Care Team Description 04/20/2024 11:20 AM MECHANICAL SOUND TECHNICIAN Office Visit [facility] [address] [place] [phone] Leigh France PA Dizzy; Falls 04/20/2024 Travel 03/24/2024 Telephone [facility] [address] [place] [address] Hitesh Ryder MD Screening 03/20/2024 Orders Only [facility] [address] [place] [address] Hitesh Ryder MD <No scans attached> 03/07/2024 Telephone [facility] [address] [place] [address] Wesley Groves MD Form (HHC & POC) 03/03/2024 Telephone [facility] [address] [place] [address] Nader Sun PA Prior Authorization (XR INJ EPIDURAL INTERLAMINAR LUMBAR- PA DENIED- APPEAL NEEDED/) 02/29/2024 3:15 PM MECHANICAL SOUND TECHNICIAN Orders Only [facility] [address] [place] [address] Lab, Farm [facility] 02/28/2024 8:45 AM MECHANICAL SOUND TECHNICIAN Procedure Only [facility] [address] [place] [address] America Ambrocio MD Procedure (lumbar interlaminar with no sed... 02/28/2024 8:10 AM MECHANICAL SOUND TECHNICIAN - 02/28/2024 11:59 PM MECHANICAL SOUND TECHNICIAN Hospital Encounter [facility] [address] [place] [address] America Ambrocio MD 02/28/2024 Travel 02/22/2024 8:45 AM MECHANICAL SOUND TECHNICIAN Office Visit [facility] [address] [place] [address] Wesley Groves MD Preoperative Exam (DOS 02/28/24 steroid injection at the pain clinic) 02/22/2024 Travel 02/21/2024 Telephone [facility] [address] [place] [address] Wesley Groves MD Form (Physician's order) 02/18/2024 Telephone [facility] [address] [place] [address] America Ambrocio MD Prior Authorization (XR INJ EPIDURAL INTERLAMINAR LUMBAR (fyi only)/ ) 02/18/2024 Telephone [facility] [address] [facility] [address] [place] [address] Nader Sun PA Prior Authorization (XR INJ EPIDURAL INTERLAMINAR LUMBAR (ADD'L INFO REQUESTED)) 02/15/2024 Orders Only [facility] [address] [place] [address] Wesley Groves MD <No scans attached> 02/15/2024 Nurse Triage [facility] [address] [place] [address] Wesley Groves MD Low Blood Pressure 02/13/2024 Refill [facility] [address] [place] [address] Wesley Groves MD Refill Request (Famotidine) 02/11/2024 Refill [facility] [address] [place] [address] Wesley Groves MD Refill Request (Aspirin) 02/08/2024 10:30 AM MECHANICAL SOUND TECHNICIAN Office Visit [facility] [address] [place] [address] Nader Sun PA Follow Up 02/08/2024 Travel 02/02/2024 Refill [facility] [address] [place] [address] Wesley Groves MD Refill Request (Metoprolol Succinate) 01/27/2024 Refill [facility] [address] [place] [address] Wesley Groves MD Refill Request (Duloxetine) from [...] on file Legal Sex Male 6:19 AM MECHANICAL SOUND TECHNICIAN Gender Identity Not on file Sexual Orientation Not on file Occupation Industry Job Start Date Job End Date Unemployed Not on file Not on file Not on file Obstetrics History Last Filed Vital Signs Vital Sign Reading Time Taken Comments Blood Pressure 101/59 04/20/2024 11:31 AM MECHANICAL SOUND TECHNICIAN Pulse 88 04/20/2024 11:31 AM MECHANICAL SOUND TECHNICIAN Temperature 36.3 C (97.3 F) 04/20/2024 11:31 AM MECHANICAL SOUND TECHNICIAN Respiratory Rate 16 04/20/2024 11:31 AM MECHANICAL SOUND TECHNICIAN Oxygen Saturation 95% 04/20/2024 11:31 AM MECHANICAL SOUND TECHNICIAN Inhaled Oxygen Concentration - - Weight 79.4 kg (175 lb) 04/20/2024 11:31 AM MECHANICAL SOUND TECHNICIAN Height 175.3 cm (5' 9) 04/20/2024 11:31 AM MECHANICAL SOUND TECHNICIAN Body Mass Index 25.84 04/20/2024 11:31 AM MECHANICAL SOUND TECHNICIAN Plan of Treatment Upcoming Encounters Date Type Department Care Team (Late st Contact Info) Description 06/10/2024 9:10 AM CDT Office Visit [facility] [address] [place] [address] [place] [address] [place] [address] 06/27/2024 9:15 AM CDT Office Visit [facility] [address] [place] [phone] Hitesh Ryder MD [address] [place] [address] 09/04/2024 Hospital Encounter [facility] [address] [place] [address] 10/01/2024 10:30 AM CDT Office Visit [facility] [address] [facility] [address] [place] [address] Nader Sun PA [address] [facility] [address] [place] [address] Health Maintenance Due Date Last Done Comments [...] Procedure Name Priority Date/Time Associated Diagnosis Comments [facility] IMAGE STORAGE Routine 02/28/2024 6:48 AM MECHANICAL SOUND TECHNICIAN CT CHEST SCREENING LOW DOSE WO CONTRAST Routine 12/25/2023 8:02 AM CDT COPD with chronic bronchitis (HC) History of cigarette smoking LIPID PANEL W REFLEX MEASURED LDL Routine 12/19/2023 9:37 AM CDT Lipid screening ANTI HIV 1/2 Routine 03/11/2020 2:01 PM MECHANICAL SOUND TECHNICIAN Elevated alkaline phosphatase level Elevated liver enzymes ANTI HCV Routine 03/11/2020 2:01 PM MECHANICAL SOUND TECHNICIAN Elevated alkaline phosphatase level Elevated liver enzymes COLONOSCOPY DIAGNOSTIC Routine 04/21/2019 12:00 PM MECHANICAL SOUND TECHNICIAN Positive colorectal cancer screening using Cologuard test [...] DOSE LUNG CANCER SCREENING CT CHEST LOCATION: [facility] DATE: 12/25/2023 INDICATION: Lung cancer screening. [...] DOSE LUNG CANCER SCREENING CT CHEST LOCATION: [facility] DATE: 12/25/2023 INDICATION: Lung cancer screening. [...] CHOLESTEROL 45 > OR = 40 mg/dL [facility] Sha TRIGLYCERIDES 105 <150 mg/dL [facility] [...] LDL-C. Hitesh AGUILAR et al. MARTA. 2013;310(19): 5997-3509 (http://education.vendome 1699/faq/UAV721) CHOL/HDLC RATIO 2.2 <5.0 (calc) [facility] Keithe NON HDL CHOLESTEROL 56 <130 mg/dL (calc) [facility] [place] Comment: For patients with diabetes plus 1 major ASCVD risk factor, treating to a non-HDL-C goal of <100 mg/dL (LDL-C of <70 mg/dL) is considered a therapeutic option. Blood BLOOD SPECIMEN / Unknown 12/19/2023 9:37 AM CDT 12/19/2023 9:37 AM CDT Wesley Groves MD CHEMISTRY Final Resul t [facility] [address] [place] [address], [facility] [address] [place] [address] * ANTI HCV (03/11/2020 2:01 PM MECHANICAL SOUND TECHNICIAN) Pathologist [facility] HEPATITIS C ANTIBODY Non-React donna Non-React donna 03/11/2020 10:59 PM MECHANICAL SOUND TECHNICIAN [facility] Comment:Antibodies to HCV no t detected; does not exclude the possibility of exposure to HCV. Blood BLOOD SPECIMEN / Unknown Butterfly / Unknown 03/11/2020 2:01 PM MECHANICAL SOUND TECHNICIAN 03/11/2020 2:01 PM MECHANICAL SOUND TECHNICIAN Hitesh Ryder MD SEND OUTS Final Res ult [facility] [address] [place] [address], [place] * ANTI HIV 1/2 (03/11/2020 2:01 PM MECHANICAL SOUND TECHNICIAN) HIV-1/HIV-2 ANTIBODY Non-Reacti ve Non-Reacti ve 03/11/2020 9:28 PM MECHANICAL SOUND TECHNICIAN [facility] Comment:HIV-1 p24 and HIV-1/ HIV-2 Ab not detected. Blood BLOOD SPECIMEN / Unknown Butterfly / Unknown 03/11/2020 2:01 PM MECHANICAL SOUND TECHNICIAN 03/11/2020 2:01 PM MECHANICAL SOUND TECHNICIAN Hitesh Ryder MD SEND OUTS Final Res ult Performing Organization Address City/[facility]/ZIP Co de Phone Number [facility] [address] [place] [address], [place] * COLONOSCOPY DIAGNOSTIC (04/21/2019 12:00 PM MECHANICAL SOUND TECHNICIAN) Karen Stevens MD GI PROCEDURE ORD Final Resu lt from Last 3 Months or Most Recently Relevant to Health Maintenance Insurance MEDICARE PB ONLY MEDICARE PART B [place] [id number] MEDICARE PART A HB ONLY MEDICAID INMATE BILLING on file MEDICAID INMATE BILLING on file Advance Directives Documents on File Type Date Recorded Patient Nutritional Yeast Supervisor Expl anation Treatment Guidelines 05/23/2021 Treatment Guidelines 07/01/2020 Treatment Guidelines 07/31/2016 3:55 PM MED CARE & RESUSCITATION - 07/31/2016 Treatment Guidelines 05/24/2015 3:46 PM ME D CARE & RESUSCITATION - 05/24/2015 Treatment Guidelines 09/15/2014 11:15 AM M ED CARE & RESUSCITATION Care Teams Clinic Supervisor Relationship Specialty [place] [address] [place] [address] PCP - General Family Practice 05/23/22 [place] [address] [facility] [address] [place] [address] Psychiatry Physician Dishroom Attendant 09/06/16 Zack Marin MBBS [address] [facility] [address] [place] [address] Cardiology - CHF Cardiovascular Disease 04/13/17 Ani Handley DPM [address] [place] [address] PODIATRY Surgery - Podiatric 06/24/21 [place] [address] [facility] [address] [place] [phone] Gastroenterology Surgery - Colon and Rectal 06/24/21 Nader Sun PA [address] [facility] [address] [place] [address] Pain Management Physician Dishroom Attendant 06/24/21 Yung Roque MD [address] [facility] [address] [place] [address] Neurology Neurology 06/24/21 America Ambrocio MD [address] [facility] [address] [place] [address] Pain Medicine - Anesthesiology 03/06/24
[2024-04-20 14:04] LABS: Basophils Absolute Auto 0.08 K/uL (0.00-0.30); Basophils Percent Auto 0.9 % (0.0-3.0); Eosinophils Absolute Auto 0.21 K/uL (0.00-0.50); Eosinophils Percent Auto 2.3 % (0.0-7.0); Hematocrit 48.4 % (37.0-53.0); Hemoglobin* 15.6 gm/dL (13.5-17.5); Immature Granulocytes Abs Auto 0.04 K/uL (0.00-0.30); Immature Granulocytes Pct Auto 0.4 %; Lymphocytes Absolute Auto 2.68 K/uL (0.90-2.90); Lymphocytes Percent Auto 29.7 % (20-44); Mean Corpuscular HGB Conc 32 gm/dL (32-36); Mean Corpuscular Hemoglobin 29 pg (26-34); Mean Corpuscular Volume 90 fL (80-100); Monocytes Percent Auto 12.1 % (0.0-11.0); Neutrophils Absolute Auto 4.92 K/uL (1.7-7.0); Neutrophils Percent Auto 54.6 % (42.0-72.0); Platelet Count* 223 K/uL (140-440); RDW Coefficient of Variation % 14.3 % (11.5-15.5); White Blood Count* 9.02 K/uL (4.50-11.00)
[2024-04-20 14:05] LABS: Chloride* 104 mmol/L (96-114); Potassium* 4.1 mmol/L (3.6-5.1); Slide Review Reflex No; Sodium* 139 mmol/L (135-149)
[2024-04-20 14:07] LABS: Creatinine* 0.7 mg/dL (0.5-1.5); Est. Creatinine Clearance* 119.24; Estimated Glomerular Filt Rate 109 ml/min
[2024-04-20 14:08] LABS: Anion Gap 10 mEq/L (7-15); Blood Urea Nitrogen* 14 mg/dL (7-30); Calcium* 8.7 mg/dL (8.4-10.6); Carbon Dioxide* 25 mmol/L (20-32); Glucose* 108 mg/dL (60-115)
[2024-04-20 14:23] LABS: Troponin I* < 0.01 ng/mL (0.01-0.04)
--- NOTE | 2024-04-20 14:39 | ED_ITS ---
HPI - General Adult General Date Seen: 04/20/24 Chief complaint: Dizziness/Vertigo Stated complaint: dizziness, fainting Time Seen by Provider: 04/20/24 12:56 Source: patient Mode of arrival: ambulatory Limitations: no limitations History of Present Illness HPI narrative: Patient is a 53-year-old male presenting to emergency department for lightheadedness and a fall. He states for the past several months he will be getting lightheaded when he stands up with these once a day. He states when he does stand up he make sure his sits on the edge of the bed for extended period of time and then stand. He usually starts feeling lightheaded after a few steps. Yesterday it was much worse and caused him to fall. He states he thinks he passed out for maybe a second. Today he had another episode where he nearly fell. States the past 2 days seems to have been the worst. Does state again only occurs once a day usually. States when occurs his vision will get fuzzy but denies feeling like the room is spinning or like he is on about. Has spoken to his primary care provider about this several months ago only cut his metoprolol from 50-25. They also believe some of it was due to his recent weight loss. Symptoms continue to persist and tried to follow-up in primary care today but was told to come to the emergency department. Is currently asymptomatic. Is not have any symptoms when lying down. Denies chest pain, shortness of breath, fevers, chills, weakness, numbness, abdominal pain, diarrhea, constipation, headache. No other concerns noted. Related Data Home Medications ?Medication ?Instructions ?Recorded ?Confirmed baclofen 10 mg tablet 5 mg PO TID PRN 04/20/24 04/20/24 blood sugar diagnostic (Accu-Chek 04/20/24 04/20/24 Guide test strips) bupropion HCl 150 mg 24 hr tablet, 150 mg PO DAILY 04/20/24 04/20/24 extended release buspirone 15 mg tablet 22.5 mg PO 3XD 04/20/24 04/20/24 duloxetine 30 mg capsule,delayed 30 mg PO DAILY 04/20/24 04/20/24 release famotidine 20 mg tablet 20 mg PO BID 04/20/24 04/20/24 fluoxetine 20 mg capsule 60 mg PO DAILY 04/20/24 04/20/24 fluticasone fur. 100 mcg-umeclid 1 ea inhalation DAILY 04/20/24 04/20/24 62.5 mcg-vilant 25 mcg inhalat.powder (Trelegy Ellipta) gabapentin 300 mg capsule mg 04/20/24 glimepiride 2 mg tablet 4 mg PO DAILY diabetes mellitus 04/20/24 04/20/24 hydroxyzine pamoate 25 mg capsule 25 - 50 mg PO QPM PRN insomnia 04/20/24 04/20/24 linagliptin 5 mg tablet (Tradjenta) 5 mg PO DAILY 04/20/24 04/20/24 metformin 500 mg tablet,extended 1,000 mg PO QPM diabetes mellitus 04/20/24 04/20/24 release 24 hr metoprolol succinate 50 mg 50 mg PO DAILY 04/20/24 04/20/24 tablet,extended release 24 hr olanzapine 10 mg tablet 5 mg PO BID 04/20/24 04/20/24 olanzapine 20 mg tablet 20 mg PO QPM 04/20/24 04/20/24 rosuvastatin 20 mg tablet 20 mg PO QPM cholesterol 04/20/24 04/20/24 tamsulosin 0.4 mg capsule 0.4 mg PO DAILY 04/20/24 04/20/24 Allergies Allergy/AdvReac Type Severity Reaction Status Date / Time lisinopril Allergy Unknown Verified 04/20/24 12:47 Review of Systems Status of ROS: Reports: 10 or more systems reviewed and unremarkable except as noted in History and below PFSH PFS Social History Smoking Status: Never smoker How often do you have a drink containing alcohol: never AUDIT-C Alcohol total score: 0 Non-prescribed substance use: denies use Exam Narrative: Exam Narrative: Const: Well-nourished, Well-developed, in no distress Eyes: PERRL, no conjunctival injection, and symmetrical lids HENT: Atraumatic external nose and ears. Moist mucous membranes. Neck: Symmetric, trachea midline, No thyromegaly. CVS: RRR, No murmurs or gallops. Peripheral pulses 2+ and equal in all extremities RESP: Unlabored respiratory effort. Clear to auscultation bilaterally. GI: Nontender/Nondistended, No rebound or guarding. MSK:Extremities w/o deformity, Normal Active ROM Skin: Warm, Dry. No rashes or lesions. Neuro: Normal Muscle tone, No focal neurological deficits. Psych: Awake, Alert, & Oriented x3. Appropriate mood and affect. Const: Vital Signs, click to edit/add: Vital Signs - 24 hr 04/20/24 12:45 04/20/24 13:33 Temperature 98.5 F Pulse Rate [Right Pulse Oximeter] 80 Pulse Rate [orthos tatic lying Pulse Oximeter] 73 Pulse Rate [orthos tatic sitting Puls e Oximeter] 75 Pulse Rate [orthos tatic standing Pul se Oximeter] 81 Respiratory Rate 18 Blood Pressure [Le ft Upper Arm] 100/65 Blood Pressure [or thostatic lying Ri ght Arm] 113/83 Blood Pressure [or thostatic sitting Right Arm] 100/73 Blood Pressure [or thostatic standing Right Arm] 98/68 Pulse Oximetry 96 Oxygen Delivery Me thod Room Air Course Vital Signs Vital signs: Initial Vital Signs Temperature 98.5 F 04/20/24 12:45 Temperature Source Temporal Artery Scan 04/20/24 12:45 Pulse Rate 80 04/20/24 12:45 Respiratory Rate 18 04/20/24 12:45 Blood Pressure 100/65 04/20/24 12:45 Blood Pressure Mean 76 04/20/24 12:45 Blood Pressure Position Sitting 04/20/24 12:45 Pulse Oximetry 96 04/20/24 12:45 Oxygen Delivery Method Room Air 04/20/24 12:45 Vital Signs Temperature 98.5 F 04/20/24 12:45 Pulse Rate 80 04/20/24 12:45 Respiratory Rate 18 04/20/24 12:45 Blood Pressure 100/65 04/20/24 12:45 Pulse Oximetry 96 04/20/24 12:45 Oxygen Delivery Method Room Air 04/20/24 12:45 Temperature 98.5 F 04/20/24 12:45 Pulse Rate 73 04/20/24 13:33 Respiratory Rate 18 04/20/24 12:45 Blood Pressure 113/83 04/20/24 13:33 Pulse Oximetry 96 04/20/24 12:45 Oxygen Delivery Method Room Air 04/20/24 12:45 Medical Decision Making MDM Narrative Medical decision making narrative: Patient is a 53-year-old male presenting to the emergency department for what sounds like syncope. Although I do not believe this is stroke related or neurological related I will do a CT head and CTA head and neck to rule out. [place] do orthostatic blood pressures to see if he is orthostatic hypotensive. EKG and troponin ordered to look for signs of ACS. I hear no murmurs on his exam so aortic stenosis seems unlikely to be the cause. I also order BMP, CBC. Lab work shows no concerning abnormalities. EKG and troponin shows no concerning findings. His orthostatic blood pressures were 113/83 lying down it dropped to 98/68 standing but he was asymptomatic. I do believe his main issue is orthostatic hypotension causing his symptoms. CT imaging shows no acute concerning abnormalities. I do think he would benefit from stopping his metoprolol completely. As far as I can tell and his records on epic he is on adjust for hypertension in his blood pressures have been good here in the emergency department. I did consult Cardiology as he has seen them in the past to get any recommendations from them. The on-call building associate does agree with stopping the metoprolol as long as he is only on it for hypertension. Also recommends a Zio patch. Patient is agreeable to this plan. I informed him and his son that they need to have close follow-up with his primary care provider and Cardiology. They are agreeable to this plan. Lab Data Labs: Lab Results 04/20/24 Range/Units 13:33 WBC 9.02 (4.50-11.00) K/uL RBC 5.40 (4.30-5.90) m/uL Hgb 15.6 (13.5-17.5) gm/dL Hct 48.4 (37.0-53.0) % MCV 90 (80-100) fL MCH 29 (26-34) pg MCHC 32 (32-36) gm/dL RDW Coeff of [place] 14.3 (11.5-15.5) % Plt Count 223 (140-440) K/uL Neut % (Auto) 54.6 (42.0-72.0) % Lymph % (Auto) 29.7 (20-44) % [place] % (Auto) 12.1 H (0.0-11.0) % Eos % (Auto) 2.3 (0.0-7.0) % Baso % (Auto) 0.9 (0.0-3.0) % Neut # (Auto) 4.92 (1.7-7.0) K/uL Lymph # (Auto) 2.68 (0.90-2.90) K/uL [place] # (Auto) 1.10 H (0.00-0.90) K/UL Eos # (Auto) 0.21 (0.00-0.50) K/uL Baso # (Auto) 0.08 (0.00-0.30) K/uL Abs Immat Gran (auto) 0.04 (0.00-0.30) K/uL Imm/Tot Granulo (auto) 0.4 % Sodium 139 (135-149) mmol/L Potassium 4.1 (3.6-5.1) mmol/L Chloride 104 (96-114) mmol/L Carbon Dioxide 25 (20-32) mmol/L Anion Gap 10 (7-15) mEq/L BUN 14 (7-30) mg/dL Creatinine 0.7 (0.5-1.5) mg/dL Estimated Creat Clear 119.24 Estimated GFR 109 ml/min Glucose 108 (60-115) mg/dL Calcium 8.7 (8.4-10.6) mg/dL Troponin I < 0.01 L (0.01-0.04) ng/mL POC Creatinine 0.8 (0.6-1.3) mg/dl Imaging Data CT scan head: Attestation: I have reviewed the pertinent imaging results. Radiologist's impression: No acute intracranial hemorrhage or mass effect. Please note that all CT scans at this facility use dose modulation, iterative reconstruction, and/or weight-based dosing when appropriate to reduce radiation dose to as low as reasonably achievable. Dictated by Suresh Rico MD @ 04/20/2024 2:27:42 PM CTA head and neck: Attestation: I have reviewed the pertinent imaging results. Radiologist's impression: Preliminary Report: No proximal large vessel occlusion or cervical arterial stenosis. Read by:?Suresh Rico MD @04/20/2024 2:30:36 PM ECG Data Attestation: I personally reviewed and interpreted this ECG as follows: Prior ECG tracings: not available for review Interpretation: Normal sinus rhythm with a rate of 70 beats per minute, right bundle branch block, normal intervals, no ST or T-wave abnormalities. Discharge Plan Discharge Clinical Impression: Orthostatic hypotension Patient Disposition: Home, Self-Care Condition: Stable Instructions: Hypotension (DC) Additional Instructions: I believe your symptoms are from orthostatic hypotension. This means your blood pressure drops when you stand up. I spoke to Cardiology and they are agreeable with you stopping your metoprolol as you are only taking this for hypertension and laying down your blood pressure is actually good. They also recommend you wear a heart monitor for the next 2 weeks. This will be just a sticker in you follow-up with your primary care provider and eventually Cardiology. I do recommend that for now on after you set up in [place] for a bit you stand up slowly and then wait for another few seconds before you start moving. Again stop taking metoprolol Prescriptions: No Action metoprolol succinate 50 mg tablet extended release 24 hr 50 mg PO DAILY olanzapine 10 mg tablet 5 mg PO BID (DME) Accu-Chek Guide test strips Strip MISCELLANEOUS DAILY glimepiride 2 mg tablet 4 mg PO DAILY famotidine 20 mg tablet 20 mg PO BID tamsulosin 0.4 mg capsule 0.4 mg PO DAILY baclofen 10 mg tablet 5 mg PO TID PRN Rx Instructions: TAKE 1/2 TABLET BY MOUTH UP TO MAX OF 3 TIMES DAILY gabapentin 300 mg capsule Patient Comments: [NO ORIGINAL SIG] fluoxetine 20 mg capsule 60 mg PO DAILY metformin 500 mg tablet extended release 24 hr 1,000 mg PO QPM olanzapine 20 mg tablet 20 mg PO QPM buspirone 15 mg tablet 22.5 mg PO 3XD hydroxyzine pamoate 25 mg capsule 25 - 50 mg PO QPM PRN (Reason: insomnia) rosuvastatin 20 mg tablet 20 mg PO QPM bupropion HCl 150 mg tablet extended release 24 hr 150 mg PO DAILY duloxetine 30 mg capsule,delayed release(DR/EC) 30 mg PO DAILY Tradjenta 5 mg tablet 5 mg PO DAILY Trelegy Ellipta 100-62.5-25 mcg blister with device 1 ea INHALATION DAILY Follow Up/Referrals: Juan Diego Herrera MD [Primary Care Provider] - Stand Alone Forms: [employer] Info Instructions
== END 2024-04-20 15:46 | disposition home or self-care (01) ==
PROVIDERS: Emergency Provider Student in an Organized Health Care Education/Training Program; PCP Family Medicine
DX: I95.1 Orthostatic hypotension (principal)
CPT/HCPCS: 36415; 70450; 70496; 70498; 80048; 82565; 84484; 85025; 93005; 93246; 99284; 99285; Q9967

== ENCOUNTER 2024-06-27 09:03 | Outpatient (CLI) | payer MEDICARE, OTHER, SELFPAY ==
--- NOTE | 2024-06-27 11:02 | P.ANES_ITS ---
Anesthesia Charges Start Date/Time Anesthesia Start Date: 06/27/24 Anesthesia Start Time: 10:27 Stop Date/Time Anesthesia Stop Date: 06/27/24 Anesthesia Stop Time: 11:00 Coding CPT Codes CPT Codes: ANES LWR INTST NDSC NOS - 12965 ([id number]) P3 - PATIENT W/SEVERE SYS DISEASE, QK - LOADER 2-4 CNCRNT ANES PROC, QX - CLAIMS INVESTIGATOR SVC W/ MD MED DIRECTION
--- NOTE | 2024-06-27 11:02 | W.ANESCHARGE ---
Anesthesia Charges Start Date/Time Anesthesia Start Date: 06/27/24 Anesthesia Start Time: 10:27 Stop Date/Time Anesthesia Stop Date: 06/27/24 Anesthesia Stop Time: 11:00 Coding CPT Codes CPT Codes: ANES LWR INTST NDSC NOS - 49952 ([id number]) P3 - PATIENT W/SEVERE SYS DISEASE, QK - HAND CUTTER 2-4 CNCRNT ANES PROC, QX - GRAIN ROASTER SVC W/ MD MED DIRECTION
--- NOTE | 2024-06-27 11:03 | P.ANES_ITS ---
Anesthesia Charges Start Date/Time Anesthesia Start Date: 06/27/24 Anesthesia Start Time: 10:27 Stop Date/Time Anesthesia Stop Date: 06/27/24 Anesthesia Stop Time: 11:00 Coding CPT Codes CPT Codes: ANES LWR INTST NDSC NOS - 76167 ([id number]) P3 - PATIENT W/SEVERE SYS DISEASE, QK - COREMAKER APPRENTICE 2-4 CNCRNT ANES PROC, QX - DIRECTOR BROADCAST SVC W/ MD MED DIRECTION
--- NOTE | 2024-06-27 11:03 | W.ANESCHARGE ---
Anesthesia Charges Start Date/Time Anesthesia Start Date: 06/27/24 Anesthesia Start Time: 10:27 Stop Date/Time Anesthesia Stop Date: 06/27/24 Anesthesia Stop Time: 11:00 Coding CPT Codes CPT Codes: ANES LWR INTST NDSC NOS - 68290 ([id number]) P3 - PATIENT W/SEVERE SYS DISEASE, QK - BUTCHER FISH 2-4 CNCRNT ANES PROC, QX - NBA PLAYER SVC W/ MD MED DIRECTION
== END 2024-06-27 09:04 | disposition home or self-care (01) ==
PROVIDERS: PCP Family Medicine; Visit Provider Internal Medicine Gastroenterology
DX: Z12.11 Encounter for screening for malignant neoplasm of colon (principal); D12.5 Benign neoplasm of sigmoid colon; Z86.0100 Personal history of colon polyps, unspecified
CPT/HCPCS: 00811; 45385; 88305; J2704